=== PATIENT | female | born 1995 ===

== ENCOUNTER 2020-09-24 14:49 | Inpatient (IN) | payer OTHER, BC ==
--- NOTE | 2020-09-24 17:32 | PCM.LDHP ---
L&D History of Present Illness - General Date of Service: 09/24/20 Admit Problem/Dx: Patient Status Order with Admit Dx/Problem 09/24/20 15:50 Patient Status [ADT] Routine Admission Diagnosis/Problem Admission Diagnosis/Problem Source of Information: Patient History Limitations: Reports: No Limitations - History of Present Illness Introduction:: 25yo at 39w4d present with contractions with cervical changes. Cont ractions currently every 4mns. care remarkable for positive chlamydia in 1st trimester, successfully treated, with negative test of cure x2 Otherwise care unremarkable: 0+, abs screen neg, RI, HepBsAg neg, HIV neg, RPR, neg, latest GC/Chlam neg, GBS neg. - Related Data Allergies/Adverse Reactions: Allergies Allergy/AdvReac Type Severity Reaction Status Date / Time No Known Allergies Allergy Verified 09/24/20 06:45 Home Medications: Home Meds Pnv No.95/Ferrous Fum/Folic AC [ Tablet] 1 tab PO DAILY 09/24/20 [History] H&P Review of Systems - Review of Systems: Review Of Systems: See Below General: Reports: No Symptoms HEENT: Reports: No Symptoms Pulmonary: Reports: No Symptoms Cardiovascular: Reports: No Symptoms Gastrointestinal: Reports: No Symptoms Genitourinary: Reports: No Symptoms Musculoskeletal: Reports: No Symptoms Skin: Reports: No Symptoms Psychiatric: Reports: No Symptoms Neurological: Reports: No Symptoms Hematologic/Lymphatic: Reports: No Symptoms Immunologic: Reports: No Symptoms L&D Exam - Exam Exam: See Below - OB Specific Contraction Intensity: Moderate Movement: Active Heart Tones: Present Heart Rate (FHR) Variability: Moderate (6-25 bmp) Presentation: Vertex Estimated Weight: 7 - Rodriguez Score Rodriguez Score Cervix Position: Midposition Rodriguez Score Consistency: Medium Rodriguez Score Effacement: 51-70% Rodriguez Score Dilation: 3-4 cm Rodriguez Score 's Station: -1 ,0 Rodriguez Score Total: 8 - Exam General: Alert, Oriented Lungs: Normal Respiratory Effort Cardiovascular: Regular Rate GI/Abdominal Exam: Soft Extremities: Normal Inspection Psychiatric: Alert, Normal Affect, Normal Mood - Patient Data Lab Results Last 24 hrs: Laboratory Results - last 24 hr 09/24/20 Range/Units 15:55 SARS-CoV-2 RNA ([place]) NEGATIVE (NEGATIVE) Result Diagrams: 09/24/20 18:40 - Problem List (1) Active labor at term SNOMED Code(s): 07995992 ICD Code: [id number] - Status: Acute Current Visit: Yes Problem List Initiated/Reviewed/Updated: Yes Orders Last 24hrs: Active Orders 24 hr Category Date Time Status Patient Status [ADT] Routine ADT 09/24/20 15:50 Active Non Stress Test [RC] PER UNIT ROUTINE Care 09/24/20 15:50 Active Up ad Chary [RC] ASDIRECTED Care 09/24/20 15:50 Active Vaginal Exam [RC] Click to Edit Care 09/24/20 15:50 Active Vital Signs [RC] PER UNIT ROUTINE Care 09/24/20 15:50 Active Resuscitation Status Routine Resus Stat 09/24/20 15:49 Ordered Assessment/Plan Comment:: 25yo at 39w4d present in early labor. Admit to labor and delivery. Expectant management. Plan to augment with Pitocin and/or AROM PRN Epidural PRN
[2020-09-24] MEDS ORDERED: Lidocaine 1% 50 ML MDV INJECT PRN (18:00)
[2020-09-24] MEDS ORDERED: Terbutaline 1 MG/ML SDV SUBCUT PRN (18:00)
[2020-09-24] MEDS ORDERED: Oxytocin/0.9 % Sodium Chloride 30 UNIT/500 ML BAG IV SCH ×2 (18:00)
[2020-09-24] MEDS ORDERED: Water For Irrigation,Sterile 1,000 ML Container IRR PRN (18:00)
[2020-09-24] MEDS ORDERED: Misoprostol 25 MCG (1/4 of 100 MCG) Tab VAG PRN ×2 (18:00)
[2020-09-24] MEDS ORDERED: Carboprost Tromethamine 250 MCG/1 ML Amp IM PRN (18:00)
[2020-09-24] MEDS ORDERED: Methylergonovine 0.2 MG/1 ML Amp IM PRN (18:00)
[2020-09-24] MEDS ORDERED: Misoprostol 200 MCG Tab PO PRN (18:00)
[2020-09-24] MEDS ORDERED: Ondansetron 4 MG/2 ML SDV IVPUSH PRN (18:00)
[2020-09-24] MEDS ORDERED: Sodium Chloride 0.9% 10 ML Syringe FLUSH PRN (18:00)
[2020-09-24] MEDS ORDERED: Tranexamic Acid 1,000 MG in Sodium Chloride 0.9% 100 ML IV PRN (18:00)
[2020-09-24] MEDS ORDERED: Misoprostol 25 MCG (1/4 of 100 MCG) Tab PO ONE (18:08)
[2020-09-24] MEDS: Lactated Ringers 1,000 ML IV SCH ×2 (20:02→23:43)
[2020-09-24] MEDS: Nalbuphine 10 MG/1 ML Vial IVPUSH PRN ×2 (20:16→23:39)
[2020-09-25] MEDS ORDERED: Ropivacaine HCl/PF 100 ML ONE ×3 (01:21→15:57)
[2020-09-25] MEDS ORDERED: fentaNYL 100 MCG/2 ML SDV ONE ×5 (01:21→17:56)
--- NOTE | 2020-09-25 02:11 | PCM.PREANE ---
Preanesthetic Assessment - Anesthesia/Transfusion/Family Hx Anesthesia History: Prior Anesthesia Without Reaction Family History of Anesthesia Reaction: No Transfusion History: No Prior Transfusion(s) Type of Transfusion Reactions: Reports: Unknown - Physical Assessment NPO Status Date: 09/24/20 NPO Status Time: 20:00 Height: 1.57 m Weight: 74.389 kg ASA Class: 2 - Lab Values: Laboratory Last Values WBC 18.08 K/uL (4.0-11.0) H 09/24/20 18:40 RBC 3.80 M/uL (4.30-5.90) L 09/24/20 18:40 Hgb 11.8 g/dL (12.0-16.0) L 09/24/20 18:40 Hct 34.8 % (36.0-46.0) L 09/24/20 18:40 MCV 91.6 fL (80.0-98.0) 09/24/20 18:40 MCH 31.1 pg (27.0-32.0) 09/24/20 18:40 MCHC 33.9 g/dL (31.0-37.0) 09/24/20 18:40 RDW Std Deviation 44.6 fl (28.0-62.0) 09/24/20 18:40 RDW Coeff of Beryl 13 % (11.0-15.0) 09/24/20 18:40 Plt Count 183 K/uL (150-400) 09/24/20 18:40 MPV 12.70 fL (7.40-12.00) H 09/24/20 18:40 Nucleated RBC % 0.0 /100WBC 09/24/20 18:40 Nucleated RBCs # 0 K/uL 09/24/20 18:40 Membrane Rupture POSITIVE 09/24/20 23:31 SARS-CoV-2 RNA ([place]) NEGATIVE (NEGATIVE) 09/24/20 15:55 Blood Type O POSITIVE 09/24/20 18:40 Antibody Screen NEGATIVE 09/24/20 18:40 - Allergies Allergies/Adverse Reactions: Allergies Allergy/AdvReac Type Severity Reaction Status Date / Time No Known Allergies Allergy Verified 09/24/20 06:45 - Acknowledgements Anesthesia Type Planned: Epidural Pt an Appropriate Candidate for the Planned Anesthesia: Yes Alternatives and Risks of Anesthesia Discussed w Pt/Guardian: Yes Pt/Guardian Understands and Agrees with Anesthesia Plan: Yes PreAnesthesia Questionnaire HEENT History: Reports: None Cardiovascular History: Reports: None Respiratory History: Reports: None Gastrointestinal History: Reports: None Genitourinary History: Reports: None SNOW SHOVELER History: Reports: Musculoskeletal History: Reports: None Neurological History: Reports: None Psychiatric History: Reports: None Endocrine/Metabolic History: Reports: None Hematologic History: Reports: None Immunologic History: Reports: None Oncologic (Cancer) History: Reports: None Dermatologic History: Reports: None - Infectious Disease History Infectious Disease History: Reports: Chicken Pox - Past Surgical History Head Surgeries/Procedures: Reports: None HEENT Surgical History: Reports: None Cardiovascular Surgical History: Reports: None Respiratory Surgical History: Reports: None GI Surgical History: Reports: None Female Surgical History: Reports: None Endocrine Surgical History: Reports: None Musculoskeletal Surgical History: Reports: None Oncologic Surgical History: Reports: None Dermatological Surgical History: Reports: None - SUBSTANCE USE Tobacco Use Status *Q: Never Tobacco User Second Hand Smoke Exposure: No Recreational Drug Use History: No - HOME MEDS Home Medications: Home Meds Pnv No.95/Ferrous Fum/Folic AC [ Tablet] 1 tab PO DAILY 09/24/20 [History] - CURRENT (IN HOUSE) MEDS Current Meds: Current Medications Carboprost Tromethamine (Carboprost Tromethamine 250 Mcg/1 Ml Amp) 250 mcg IM ASDIRECTED PRN PRN Reason: Post Hemorrhage Lactated Ringer's (Ringers, Lactated) 1,000 mls @ 150 mls/hr IV ASDIRECTED JONATHAN Last Infusion: 09/25/20 00:52 Dose: 999 mls/hr Documented by: Oxytocin/Sodium Chloride (Oxytocin 30 Unit/500 Ml-Ns) 30 unit in 500 mls @ 999 mls/hr IV TITRATE JONATHAN Tranexamic Acid 1,000 mg/ (Sodium Chloride) 110 mls @ 660 mls/hr IV ONETIME PRN PRN Reason: Bleeding Oxytocin/Sodium Chloride (Oxytocin 30 Unit/500 Ml-Ns) 30 unit in 500 mls @ 2 mls/hr IV TITRATE JONATHAN; Protocol Last Admin: 09/25/20 02:00 Dose: 2 munits/min, 2 mls/hr Documented by: Lidocaine HCl (Lidocaine 1% 50 Ml Mdv) 50 ml INJECT ONETIME PRN PRN Reason: Laceration repair Methylergonovine Maleate (Methylergonovine 0.2 Mg/1 Ml Amp) 0.2 mg IM ASDIRECTED PRN PRN Reason: Post Hemorrhage Misoprostol (Misoprostol 200 Mcg Tab) 200 mcg PO ONETIME PRN PRN Reason: Post Hemorrhage Misoprostol (Misoprostol 25 Mcg (1/4 Of 100 Mcg) Tab) 25 mcg VAG ONETIME PRN PRN Reason: Cervical Ripening Misoprostol (Misoprostol 25 Mcg (1/4 Of 100 Mcg) Tab) 25 mcg VAG Q4H PRN PRN Reason: Cervical Ripening Ondansetron HCl (Ondansetron 4 Mg/2 Ml Sdv) 4 mg IVPUSH Q4H PRN PRN Reason: Nausea/Vomiting Sodium Chloride (Sodium Chloride 0.9% 10 Ml Syringe) 10 ml FLUSH ASDIRECTED PRN PRN Reason: Keep Vein Open Sterile Water (Water For Irrigation,Sterile 1,000 Ml Container) 1,000 ml IRR ASDIRECTED PRN PRN Reason: delivery Terbutaline Sulfate (Terbutaline 1 Mg/Ml Sdv) 0.25 mg SUBCUT ASDIRECTED PRN PRN Reason: Tacysystole Discontinued Medications Fentanyl (Fentanyl 100 Mcg/2 Ml Sdv) Confirm Administered Dose 100 mcg .ROUTE .STK-MED ONE Stop: 09/25/20 01:22 Ropivacaine (Naropin 0.2%) Confirm Administered Dose 100 mls @ as directed .ROUTE .STK-MED ONE Stop: 09/25/20 01:22 Misoprostol (Misoprostol 25 Mcg (1/4 Of 100 Mcg) Tab) 25 mcg PO ONETIME ONE Stop: 09/24/20 18:09 Nalbuphine HCl (Nalbuphine 10 Mg/1 Ml Vial) 10 mg IVPUSH Q1H PRN PRN Reason: Pain (severe 7-10) Last Admin: 09/24/20 23:39 Dose: 10 mg Documented by:
--- NOTE | 2020-09-25 02:15 | PCM.PRNOTE ---
- Free Text/Narrative Note: Anes Note Patient requests epidural for L&D. Sitting position> Level L3-L4 midline approach. Sterile technqiue. Chloraprep scrub to lumbar area. Sterile fenestrated drape applied. Epidural space easily achieved singel attempt using MILA technique. MILA at 3 cm. Cath threaded 5 cm with ease. Cath secured usng sterile clear adhesive dressing. Test 0125 3 cc 1.5% lido with epi negative. 0128 Load 10 cc 0.2% ropiviciane iwht 1 mcg cc fentanyl in slow divided doses. 0133 Pump started with 90 cc same solution. Rate is 8 cc hr with 6 cc q 20 min prn bolus. Sun well. Time with patient [id number] Thom Coburn MAINTENANCE AND UTILITIES SUPERVISOR
[2020-09-25] MEDS: Lactated Ringers 1,000 ML IV SCH (05:44)
[2020-09-25] MEDS: Ampicillin 2 GM in Sodium Chloride 0.9% 100 ML IV SCH ×2 (08:57→14:49)
--- NOTE | 2020-09-25 09:17 | PCM.PNLD ---
Labor Progress Note - VS & Meds Active Medications: Current Medications Carboprost Tromethamine (Carboprost Tromethamine 250 Mcg/1 Ml Amp) 250 mcg IM ASDIRECTED PRN PRN Reason: Post Hemorrhage Lactated Ringer's (Ringers, Lactated) 1,000 mls @ 150 mls/hr IV ASDIRECTED [facility] Last Admin: 09/25/20 05:44 Dose: 150 mls/hr Documented by: Oxytocin/Sodium Chloride (Oxytocin 30 Unit/500 Ml-Ns) 30 unit in 500 mls @ 999 mls/hr IV TITRATE JONATHAN Tranexamic Acid 1,000 mg/ (Sodium Chloride) 110 mls @ 660 mls/hr IV ONETIME PRN PRN Reason: Bleeding Oxytocin/Sodium Chloride (Oxytocin 30 Unit/500 Ml-Ns) 30 unit in 500 mls @ 2 mls/hr IV TITRATE [facility]; Protocol Last Titration: 09/25/20 05:40 Dose: 10 munits/min, 10 mls/hr Documented by: Ampicillin Sodium 2 gm/ Sodium (Chloride) 100 mls @ 200 mls/hr IV Q6H [facility] Last Admin: 09/25/20 08:57 Dose: 200 mls/hr Documented by: Gentamicin Sulfate 100 mg/ (Sodium Chloride) 102.5 mls @ 195.238 mls/hr IV Q8H JONATHAN Gentamicin Sulfate 140 mg/ (Sodium Chloride) 103.5 mls @ 207 mls/hr IV ONETIME ONE Stop: 09/25/20 09:29 Lidocaine HCl (Lidocaine 1% 50 Ml Mdv) 50 ml INJECT ONETIME PRN PRN Reason: Laceration repair Methylergonovine Maleate (Methylergonovine 0.2 Mg/1 Ml Amp) 0.2 mg IM ASDIRECTED PRN PRN Reason: Post Hemorrhage Misoprostol (Misoprostol 200 Mcg Tab) 200 mcg PO ONETIME PRN PRN Reason: Post Hemorrhage Misoprostol (Misoprostol 25 Mcg (1/4 Of 100 Mcg) Tab) 25 mcg VAG ONETIME PRN PRN Reason: Cervical Ripening Misoprostol (Misoprostol 25 Mcg (1/4 Of 100 Mcg) Tab) 25 mcg VAG Q4H PRN PRN Reason: Cervical Ripening Ondansetron HCl (Ondansetron 4 Mg/2 Ml Sdv) 4 mg IVPUSH Q4H PRN PRN Reason: Nausea/Vomiting Sodium Chloride (Sodium Chloride 0.9% 10 Ml Syringe) 10 ml FLUSH ASDIRECTED PRN PRN Reason: Keep Vein Open Sterile Water (Water For Irrigation,Sterile 1,000 Ml Container) 1,000 ml IRR ASDIRECTED PRN PRN Reason: delivery Terbutaline Sulfate (Terbutaline 1 Mg/Ml Sdv) 0.25 mg SUBCUT ASDIRECTED PRN PRN Reason: Tacysystole Discontinued Medications Fentanyl (Fentanyl 100 Mcg/2 Ml Sdv) Confirm Administered Dose 100 mcg .ROUTE .STK-MED ONE Stop: 09/25/20 01:22 Last Admin: 09/25/20 08:47 Dose: Not Given Documented by: Ropivacaine (Naropin 0.2%) Confirm Administered Dose 100 mls @ as directed .ROUTE .STK-MED ONE Stop: 09/25/20 01:22 Last Admin: 09/25/20 08:47 Dose: Not Given Documented by: Gentamicin Sulfate 140 mg/ (Sodium Chloride) 53.5 mls @ 100 mls/hr IV ONETIME ONE Stop: 09/25/20 09:32 Misoprostol (Misoprostol 25 Mcg (1/4 Of 100 Mcg) Tab) 25 mcg PO ONETIME ONE Stop: 09/24/20 18:09 Nalbuphine HCl (Nalbuphine 10 Mg/1 Ml Vial) 10 mg IVPUSH Q1H PRN PRN Reason: Pain (severe 7-10) Last Admin: 09/24/20 23:39 Dose: 10 mg Documented by: - Uterine Contractions Uterine Monitoring Mode: External [place] Contraction Intensity: Moderate to Strong Uterine Resting Tone: Soft - Monitoring Monitor Mode: Doppler/Auscultation Heart Rate (FHR) Variability: Moderate (6-25 bmp) Accelerations: Present, 15x15 Decelerations: Variable Strip Review: Category II - Vaginal Exam Dilation (cm): 4 Station: -1 Cervical Position: Midposition - Labor Progress (Free Text) Labor Progress: Patient reported fluid leaking and amnisure was positive at 11pm (09/24/20). Nurse reports fluid was minimal, appeared meconium tinged and mixed with bloody show. Fetus has now been having intermittent tachycardia for ~2hrs, as high as 165. Good accels with minimal to moderate variability. Mom just spiked a low grade fever (100.5) and reports burning of the eyes, but no abdominal tenderness. Of note, she has the epidural in place. Provider discussed concerns for chorioamnionitis and necessity to treat. Patient agreeable to the plan. Will start ampicillin Q6hrs and gentamicin Q8hrs
--- NOTE | 2020-09-25 09:33 | PCM.PRNOTE ---
- Free Text/Narrative Note: Anes Note Epiudral infusion is complete. A new bag of 90 cc 0.2% ropivicaine with 1 mcg cc fentanyl added was placed. Rate is 8 cc hr with 6 cc q 20 min prn bolus. Time with patient [id number] Thom Coburn CRNA
[2020-09-25] MEDS ORDERED: Acetaminophen 500 MG Tab PO ONE (10:50)
[2020-09-25] MEDS ORDERED: Acetaminophen 500 MG Tab ONE (10:50)
[2020-09-25] MEDS ORDERED: Bupivacaine 0.5% 30 ML SDV ONE (15:50)
--- NOTE | 2020-09-25 16:10 | PCM.PRNOTE ---
- Free Text/Narrative Note: Anes Note Patietn reports mild to moderate discomfort in left mid to upper abdomen. Lower abdomen (below T10 Level) and perineum are comfortable. I nelson ed the epidural with 100 mcg fentanyl plus 4 cc 0.5% bupivicaine in slow divided doses. A new bag was placed. 95 cc of 0.2% ropivicaine with 1 mcg cc fentanyl. Rate is 8 cc hr with 6 cc q 20 min prn bolus. Sun well. Time with patient [id number] Thom Coburn CRNA
[2020-09-25] MEDS ORDERED: Citric Acid/Sodium Citrate Solution 30 ML Cup PO ONE (17:31)
[2020-09-25] MEDS ORDERED: metroNIDAZOLE/Normal Saline 500 MG in Premix Bag 1 BAG IV ONE (17:36)
[2020-09-25] MEDS ORDERED: Lactated Ringers 1,000 ML IV SCH ×2 (17:45→19:30)
[2020-09-25] MEDS ORDERED: Oxytocin/0.9 % Sodium Chloride 30 UNIT/500 ML BAG IV SCH (17:45)
--- NOTE | 2020-09-25 17:53 | PCM.PNLD ---
Labor Progress Note - VS & Meds Vital Signs: Last Vital Signs Temp 99.7 F 09/25/20 11:21 Pulse Resp BP Pulse Ox Active Medications: Current Medications Carboprost Tromethamine (Carboprost Tromethamine 250 Mcg/1 Ml Amp) 250 mcg IM ASDIRECTED PRN PRN Reason: Post Hemorrhage Lactated Ringer's (Ringers, Lactated) 1,000 mls @ 150 mls/hr IV ASDIRECTED [facility] Last Admin: 09/25/20 05:44 Dose: 150 mls/hr Documented by: Oxytocin/Sodium Chloride (Oxytocin 30 Unit/500 Ml-Ns) 30 unit in 500 mls @ 999 mls/hr IV TITRATE JONATHAN Tranexamic Acid 1,000 mg/ (Sodium Chloride) 110 mls @ 660 mls/hr IV ONETIME PRN PRN Reason: Bleeding Oxytocin/Sodium Chloride (Oxytocin 30 Unit/500 Ml-Ns) 30 unit in 500 mls @ 2 mls/hr IV TITRATE [facility]; Protocol Last Titration: 09/25/20 12:18 Dose: 14 munits/min, 14 mls/hr Documented by: Ampicillin Sodium 2 gm/ Sodium (Chloride) 100 mls @ 200 mls/hr IV Q6H [facility] Last Admin: 09/25/20 14:49 Dose: 200 mls/hr Documented by: Gentamicin Sulfate 100 mg/ (Sodium Chloride) 102.5 mls @ 195.238 mls/hr IV Q8H [facility] Last Admin: 09/25/20 17:06 Dose: 195.238 mls/hr Documented by: Lactated Ringer's (Ringers, Lactated) 1,000 mls @ 500 mls/hr IV BOLUS JONATHAN Oxytocin/Sodium Chloride (Oxytocin 30 Unit/500 Ml-Ns) 30 unit in 500 mls @ 250 mls/hr IV TITRATE JONATHAN Metronidazole 500 mg/ Premix 100 mls @ 100 mls/hr IV ONETIME ONE Stop: 09/25/20 18:35 Lidocaine HCl (Lidocaine 1% 50 Ml Mdv) 50 ml INJECT ONETIME PRN PRN Reason: Laceration repair Methylergonovine Maleate (Methylergonovine 0.2 Mg/1 Ml Amp) 0.2 mg IM ASDIRECTED PRN PRN Reason: Post Hemorrhage Misoprostol (Misoprostol 200 Mcg Tab) 200 mcg PO ONETIME PRN PRN Reason: Post Hemorrhage Misoprostol (Misoprostol 25 Mcg (1/4 Of 100 Mcg) Tab) 25 mcg VAG ONETIME PRN PRN Reason: Cervical Ripening Misoprostol (Misoprostol 25 Mcg (1/4 Of 100 Mcg) Tab) 25 mcg VAG Q4H PRN PRN Reason: Cervical Ripening Ondansetron HCl (Ondansetron 4 Mg/2 Ml Sdv) 4 mg IVPUSH Q4H PRN PRN Reason: Nausea/Vomiting Sodium Chloride (Sodium Chloride 0.9% 10 Ml Syringe) 10 ml FLUSH ASDIRECTED PRN PRN Reason: Keep Vein Open Sterile Water (Water For Irrigation,Sterile 1,000 Ml Container) 1,000 ml IRR ASDIRECTED PRN PRN Reason: delivery Terbutaline Sulfate (Terbutaline 1 Mg/Ml Sdv) 0.25 mg SUBCUT ASDIRECTED PRN PRN Reason: Tacysystole Discontinued Medications Acetaminophen (Acetaminophen 500 Mg Tab) 1,000 mg PO ONETIME ONE Stop: 09/25/20 10:51 Last Admin: 09/25/20 10:51 Dose: 1,000 mg Documented by: Acetaminophen (Acetaminophen 500 Mg Tab) Confirm Administered Dose 1,000 mg .ROUTE .STK-MED ONE Stop: 09/25/20 10:51 Last Admin: 09/25/20 10:53 Dose: Not Given Documented by: Bupivacaine HCl (Bupivacaine 0.5% 30 Ml Sdv) Confirm Administered Dose 30 ml .ROUTE .STK-MED ONE Stop: 09/25/20 15:51 Citric Acid/Sodium Citrate (Citric Acid/Sodium Citrate Solution 30 Ml Cup) 30 ml PO ONETIME ONE Stop: 09/25/20 17:32 Fentanyl (Fentanyl 100 Mcg/2 Ml Sdv) Confirm Administered Dose 100 mcg .ROUTE .STK-MED ONE Stop: 09/25/20 01:22 Last Admin: 09/25/20 08:47 Dose: Not Given Documented by: Fentanyl (Fentanyl 100 Mcg/2 Ml Sdv) Confirm Administered Dose 100 mcg .ROUTE .STK-MED ONE Stop: 09/25/20 09:25 Last Admin: 09/25/20 11:42 Dose: Not Given Documented by: Fentanyl (Fentanyl 100 Mcg/2 Ml Sdv) Confirm Administered Dose 100 mcg .ROUTE .STK-MED ONE Stop: 09/25/20 15:51 Fentanyl (Fentanyl 100 Mcg/2 Ml Sdv) Confirm Administered Dose 100 mcg .ROUTE .STK-MED ONE Stop: 09/25/20 15:58 Ropivacaine (Naropin 0.2%) Confirm Administered Dose 100 mls @ as directed .ROUTE .STK-MED ONE Stop: 09/25/20 01:22 Last Admin: 09/25/20 08:47 Dose: Not Given Documented by: Gentamicin Sulfate 140 mg/ (Sodium Chloride) 53.5 mls @ 100 mls/hr IV ONETIME ONE Stop: 09/25/20 09:32 Gentamicin Sulfate 140 mg/ (Sodium Chloride) 103.5 mls @ 207 mls/hr IV ONETIME ONE Stop: 09/25/20 09:29 Last Admin: 09/25/20 09:30 Dose: 206 mls/hr Documented by: Ropivacaine (Naropin 0.2%) Confirm Administered Dose 100 mls @ as directed .ROUTE .STK-MED ONE Stop: 09/25/20 09:25 Last Admin: 09/25/20 11:41 Dose: Not Given Documented by: Ropivacaine (Naropin 0.2%) Confirm Administered Dose 100 mls @ as directed .ROUTE .STK-MED ONE Stop: 09/25/20 15:58 Misoprostol (Misoprostol 25 Mcg (1/4 Of 100 Mcg) Tab) 25 mcg PO ONETIME ONE Stop: 09/24/20 18:09 Nalbuphine HCl (Nalbuphine 10 Mg/1 Ml Vial) 10 mg IVPUSH Q1H PRN PRN Reason: Pain (severe 7-10) Last Admin: 09/24/20 23:39 Dose: 10 mg Documented by: - Uterine Contractions Uterine Monitoring Mode: External [place] Contraction Intensity: Moderate to Strong Uterine Resting Tone: Soft - Monitoring Monitor Mode: Doppler/Auscultation Heart Rate (FHR) Baseline: 175 Heart Rate (FHR) Variability: Moderate (6-25 bmp) Accelerations: Present, 15x15 Decelerations: Variable Strip Review: Category II - Vaginal Exam Dilation (cm): 8 Station: -2 Cervical Position: Midposition - Labor Progress (Free Text) Labor Progress: tachycardia for the past ~10hrs with intermittent normal episodes of normal HR. Moderate variability, and +accels --> cat II FHT Patient has been 8cm dilated for ~3hrs. Significant pelvic and genital edema, and caput. Mother spiked another fever and having chills. Provider discussed risks and benefits of continuing with trial of vaginal vs proceeding with a primary . Patient and family at bedside agreeable for . OR team has been called
[2020-09-25] MEDS ORDERED: Morphine PF 10 MG/10 ML SDV ONE (17:56)
[2020-09-25] MEDS ORDERED: Octyl 2-Cyanoacrylate 1 Tube ONE (18:03)
--- NOTE | 2020-09-25 18:03 | PCM.DEL ---
L & D Note - General Info Date of Service: 09/25/20 Mother's Due Date: 09/27/20 - Delivery Note Labor: Spontaneous Delivery Outcome: Livebirth Infant Delivery Method: Primary Presentation: Vertex Nuchal Cord: None Anesthesia Type: Combined Spinal Epidural Amniotic Fluid Description: Meconium Stained Placenta: Intact, Spontaneous, Meconium Stained Cord: 3 Vessels Estimated Blood Loss: 600 Resuscitation Needed: No : Stimulated Score 1 min: 9 Score 5 min: 9 Delivery Comments (Free Text/Narrative):: 25yo G1 now P1 S/P uncomplicated PLTCS @ 39w5d GA. course was unremarkable. Labor course c/b chorioamnionitis, persistent tachycardia and failure to progress. PLTCS of a live male, 7lb 3oz and Apgars 9/9. No nuchal cord, heavily meconium- tinged fluid. EBL 600cc. Hemostasis. Patient tolerated procedure well, recovering in LDR. Infant by her side. - General Info Date of Service: 09/25/20 Admission Dx/Problem (Free Text): Patient Status Order with Admit Dx/Problem 09/24/20 15:50 Patient Status [ADT] Routine Admission Diagnosis/Problem Admission Diagnosis/Problem Subjective Update: Uncomplicated PLTCS at 39w5d GA secondary to failure to progress in the setting of Chorioamnionitis with subsequent persistent tachycardia. Mother and baby are doing well Functional Status: Reports: Pain Controlled - Review of Systems General: Reports: No Symptoms HEENT: Reports: No Symptoms Pulmonary: Reports: No Symptoms Cardiovascular: Reports: No Symptoms Gastrointestinal: Reports: No Symptoms Genitourinary: Reports: No Symptoms Musculoskeletal: Reports: No Symptoms Skin: Reports: No Symptoms Neurological: Reports: No Symptoms Psychiatric: Reports: No Symptoms - Patient Data Vitals - Most Recent: Last Vital Signs Temp 99.7 F 09/25/20 11:21 Pulse Resp BP Pulse Ox Weight - Most Recent: 74.389 kg Lab Results Last 24 Hours: Laboratory Results - last 24 hr 09/24/20 09/24/20 09/24/20 Range/Units 18:40 18:40 19:50 WBC 18.08 H (4.0-11.0) K/uL RBC 3.80 L (4.30-5.90) M/uL Hgb 11.8 L (12.0-16.0) g/dL Hct 34.8 L (36.0-46.0) % MCV 91.6 (80.0-98.0) fL MCH 31.1 (27.0-32.0) pg MCHC 33.9 (31.0-37.0) g/dL RDW Std Deviation 44.6 (28.0-62.0) fl RDW Coeff of Beryl 13 (11.0-15.0) % Plt Count 183 (150-400) K/uL MPV 12.70 H (7.40-12.00) fL Nucleated RBC % 0.0 /100WBC Nucleated RBCs # 0 K/uL Membrane Rupture NEGATIVE Blood Type O POSITIVE Antibody Screen NEGATIVE 09/24/20 Range/Units 23:31 WBC (4.0-11.0) K/uL RBC (4.30-5.90) M/uL Hgb (12.0-16.0) g/dL Hct (36.0-46.0) % MCV (80.0-98.0) fL MCH (27.0-32.0) pg MCHC (31.0-37.0) g/dL RDW Std Deviation (28.0-62.0) fl RDW Coeff of Beryl (11.0-15.0) % Plt Count (150-400) K/uL MPV (7.40-12.00) fL Nucleated RBC % /100WBC Nucleated RBCs # K/uL Membrane Rupture POSITIVE Blood Type Antibody Screen Med Orders - Current: Current Medications Carboprost Tromethamine (Carboprost Tromethamine 250 Mcg/1 Ml Amp) 250 mcg IM ASDIRECTED PRN PRN Reason: Post Hemorrhage Lactated Ringer's (Ringers, Lactated) 1,000 mls @ 150 mls/hr IV ASDIRECTED JONATHAN Last Admin: 09/25/20 05:44 Dose: 150 mls/hr Documented by: Oxytocin/Sodium Chloride (Oxytocin 30 Unit/500 Ml-Ns) 30 unit in 500 mls @ 999 mls/hr IV TITRATE JONATHAN Tranexamic Acid 1,000 mg/ (Sodium Chloride) 110 mls @ 660 mls/hr IV ONETIME PRN PRN Reason: Bleeding Oxytocin/Sodium Chloride (Oxytocin 30 Unit/500 Ml-Ns) 30 unit in 500 mls @ 2 mls/hr IV TITRATE [facility]; Protocol Last Titration: 09/25/20 12:18 Dose: 14 munits/min, 14 mls/hr Documented by: Ampicillin Sodium 2 gm/ Sodium (Chloride) 100 mls @ 200 mls/hr IV Q6H [facility] Last Admin: 09/25/20 14:49 Dose: 200 mls/hr Documented by: Gentamicin Sulfate 100 mg/ (Sodium Chloride) 102.5 mls @ 195.238 mls/hr IV Q8H [facility] Last Admin: 09/25/20 17:06 Dose: 195.238 mls/hr Documented by: Lactated Ringer's (Ringers, Lactated) 1,000 mls @ 500 mls/hr IV BOLUS [facility] Oxytocin/Sodium Chloride (Oxytocin 30 Unit/500 Ml-Ns) 30 unit in 500 mls @ 250 mls/hr IV TITRATE [facility] Metronidazole 500 mg/ Premix 100 mls @ 100 mls/hr IV ONETIME ONE Stop: 09/25/20 18:35 Lidocaine HCl (Lidocaine 1% 50 Ml Mdv) 50 ml INJECT ONETIME PRN PRN Reason: Laceration repair Methylergonovine Maleate (Methylergonovine 0.2 Mg/1 Ml Amp) 0.2 mg IM ASDIRECTED PRN PRN Reason: Post Hemorrhage Misoprostol (Misoprostol 200 Mcg Tab) 200 mcg PO ONETIME PRN PRN Reason: Post Hemorrhage Misoprostol (Misoprostol 25 Mcg (1/4 Of 100 Mcg) Tab) 25 mcg VAG ONETIME PRN PRN Reason: Cervical Ripening Misoprostol (Misoprostol 25 Mcg (1/4 Of 100 Mcg) Tab) 25 mcg VAG Q4H PRN PRN Reason: Cervical Ripening Ondansetron HCl (Ondansetron 4 Mg/2 Ml Sdv) 4 mg IVPUSH Q4H PRN PRN Reason: Nausea/Vomiting Sodium Chloride (Sodium Chloride 0.9% 10 Ml Syringe) 10 ml FLUSH ASDIRECTED PRN PRN Reason: Keep Vein Open Sterile Water (Water For Irrigation,Sterile 1,000 Ml Container) 1,000 ml IRR ASDIRECTED PRN PRN Reason: delivery Terbutaline Sulfate (Terbutaline 1 Mg/Ml Sdv) 0.25 mg SUBCUT ASDIRECTED PRN PRN Reason: Tacysystole Discontinued Medications Acetaminophen (Acetaminophen 500 Mg Tab) 1,000 mg PO ONETIME ONE Stop: 09/25/20 10:51 Last Admin: 09/25/20 10:51 Dose: 1,000 mg Documented by: Acetaminophen (Acetaminophen 500 Mg Tab) Confirm Administered Dose 1,000 mg .ROUTE .STK-MED ONE Stop: 09/25/20 10:51 Last Admin: 09/25/20 10:53 Dose: Not Given Documented by: Bupivacaine HCl (Bupivacaine 0.5% 30 Ml Sdv) Confirm Administered Dose 30 ml .ROUTE .STK-MED ONE Stop: 09/25/20 15:51 Citric Acid/Sodium Citrate (Citric Acid/Sodium Citrate Solution 30 Ml Cup) 30 ml PO ONETIME ONE Stop: 09/25/20 17:32 Fentanyl (Fentanyl 100 Mcg/2 Ml Sdv) Confirm Administered Dose 100 mcg .ROUTE .STK-MED ONE Stop: 09/25/20 01:22 Last Admin: 09/25/20 08:47 Dose: Not Given Documented by: Fentanyl (Fentanyl 100 Mcg/2 Ml Sdv) Confirm Administered Dose 100 mcg .ROUTE .STK-MED ONE Stop: 09/25/20 09:25 Last Admin: 09/25/20 11:42 Dose: Not Given Documented by: Fentanyl (Fentanyl 100 Mcg/2 Ml Sdv) Confirm Administered Dose 100 mcg .ROUTE .STK-MED ONE Stop: 09/25/20 15:51 Fentanyl (Fentanyl 100 Mcg/2 Ml Sdv) Confirm Administered Dose 100 mcg .ROUTE .STK-MED ONE Stop: 09/25/20 15:58 Ropivacaine (Naropin 0.2%) Confirm Administered Dose 100 mls @ as directed .R OUTE .STK-MED ONE Stop: 09/25/20 01:22 Last Admin: 09/25/20 08:47 Dose: Not Given Documented by: Gentamicin Sulfate 140 mg/ (Sodium Chloride) 53.5 mls @ 100 mls/hr IV ONETIME ONE Stop: 09/25/20 09:32 Gentamicin Sulfate 140 mg/ (Sodium Chloride) 103.5 mls @ 207 mls/hr IV ONETIME ONE Stop: 09/25/20 09:29 Last Admin: 09/25/20 09:30 Dose: 206 mls/hr Documented by: Ropivacaine (Naropin 0.2%) Confirm Administered Dose 100 mls @ as directed .ROUTE .STK-MED ONE Stop: 09/25/20 09:25 Last Admin: 09/25/20 11:41 Dose: Not Given Documented by: Ropivacaine (Naropin 0.2%) Confirm Administered Dose 100 mls @ as directed .ROUTE .STK-MED ONE Stop: 09/25/20 15:58 Misoprostol (Misoprostol 25 Mcg (1/4 Of 100 Mcg) Tab) 25 mcg PO ONETIME ONE Stop: 09/24/20 18:09 Nalbuphine HCl (Nalbuphine 10 Mg/1 Ml Vial) 10 mg IVPUSH Q1H PRN PRN Reason: Pain (severe 7-10) Last Admin: 09/24/20 23:39 Dose: 10 mg Documented by: - Exam General: Alert, Oriented Lungs: Normal Respiratory Effort Cardiovascular: Regular Rate, Regular Rhythm GI/Abdominal Exam: Soft Extremities: Normal Inspection Psy/Mental Status: Alert, Normal Affect, Normal Mood - Problem List & Annotations (1) Active labor at term SNOMED Code(s): 69769413 Code(s): LQX6924 - Status: Acute Current Visit: Yes (2) Status post primary low transverse section SNOMED Code(s): 348679470, 60637817, 502066769, 152968929, 136238019 Code(s): Z98.891 - HISTORY OF UTERINE SCAR FROM PREVIOUS SURGERY Status: Acute Current Visit: Yes - Problem List Review Problem List Initiated/Reviewed/Updated: Yes - My Orders Last 24 Hours: My Active Orders 09/24/20 18:00 Carboprost Tromethamine [Hemabate DS] 250 mcg IM ASDIRECTED PRN Lactated Ringers [Ringers, Lactated] 1,000 ml IV ASDIRECTED Lidocaine 1% [Xylocaine 1%] 50 ml INJECT ONETIME PRN Methylergonovine [Methergine] 0.2 mg IM ASDIRECTED PRN Ondansetron [Zofran] 4 mg IVPUSH Q4H PRN Oxytocin/0.9 % Sodium Chloride [Oxytocin 30 Unit/500 ML-NS] 30 unit in 500 ml IV TITRATE Oxytocin/0.9 % Sodium Chloride [Oxytocin 30 Unit/500 ML-NS] 30 unit in 500 ml IV TITRATE Sodium Chloride 0.9% [Saline Flush] 10 ml FLUSH ASDIRECTED PRN Terbutaline [Brethine] 0.25 mg SUBCUT ASDIRECTED PRN Tranexamic Acid [Cyklokapron] 1,000 mg Sodium Chloride 0.9% [Normal Saline] 1 00 ml IV ONETIME Water For Irrigation,Sterile [Sterile Water for Irrigation] 1,000 ml IRR ASDIRECTED PRN miSOPROStoL [Cytotec] 200 mcg PO ONETIME PRN miSOPROStoL [Cytotec] 25 mcg VAG ONETIME PRN miSOPROStoL [Cytotec] 25 mcg VAG Q4H PRN 09/24/20 18:01 Bedrest Bathroom Privileges [RC] ASDIRECTED May Shower [RC] ASDIRECTED Notify Provider [RC] PRN Notify Provider [RC] PRN Notify Provider [RC] STAT Scalp Electrode [WOMSER] Per Unit Routine Peripheral IV Insertion Adult [OM.PC] Routine 09/24/20 18:15 Medication Administration Instruction [OM.PC] Q3H 09/24/20 18:40 RPR (SYPHILIS SERO) W/ RFLX [REF] Routine 09/25/20 08:45 Ampicillin 2 gm Sodium Chloride 0.9% [Normal Saline] 100 ml IV Q6H 09/25/20 17:00 Gentamicin 100 mg Sodium Chloride 0.9% [Normal Saline] 100 ml IV Q8H 09/25/20 17:31 Patient Status [ADT] Routine Verify Patient Consent Obtain [RC] ASDIRECTED Schedule Procedure [COMM] Per Unit Routine 09/25/20 17:36 metroNIDAZOLE/Normal Saline [Flagyl in NS 500 MG/100 ML] 500 mg Premix Bag 1 bag IV ONETIME 09/25/20 17:45 Lactated Ringers [Ringers, Lactated] 1,000 ml IV BOLUS Oxytocin/0.9 % Sodium Chloride [Oxytocin 30 Unit/500 ML-NS] 30 unit in 500 ml IV TITRATE 09/25/20 19:00 Notify Provider Vital Signs [RC] PRN - Plan Plan:: 25yo G1 now P1 s/p uncomplicated PLTCS at 39w5d secondary to failure to progress in the setting of chorioamnionitis. Patient treated for chorio with amp and gent. Baby has recovered well. Admit to L&D Routine PP care.
[2020-09-25] MEDS ORDERED: Oxytocin 10 Units/1 ML SDV ONE (18:08)
[2020-09-25] MEDS ORDERED: Phenylephrine 1% 10 MG/ML SDV ONE (18:08)
[2020-09-25] MEDS ORDERED: ceFAZolin 1 GM Vial ONE (18:08)
[2020-09-25] MEDS ORDERED: Sodium Chloride 0.9% 20 ML ONE (18:08)
[2020-09-25] MEDS ORDERED: Ketorolac 30 MG/ML SDV ONE (18:08)
[2020-09-25] MEDS ORDERED: Ondansetron 4 MG/2 ML SDV ONE (18:08)
[2020-09-25] MEDS ORDERED: Propofol 200 MG/20 ML SDV ONE (18:17)
[2020-09-25] MEDS ORDERED: Ketamine 500 mg/10 ML MDV ONE (18:22)
[2020-09-25] MEDS ORDERED: Nalbuphine 10 MG/1 ML Vial IVPUSH PRN (18:38)
[2020-09-25] MEDS ORDERED: Ibuprofen 800 MG Tab PO PRN (19:22)
[2020-09-25] MEDS ORDERED: Misoprostol 200 MCG Tab RECTAL PRN (19:22)
[2020-09-25] MEDS ORDERED: Lanolin 100% Cream 7 GM Tube TOP PRN (19:22)
[2020-09-25] MEDS ORDERED: Tranexamic Acid 1,000 MG in Sodium Chloride 0.9% 100 ML IV PRN (19:22)
[2020-09-25] MEDS ORDERED: Bisacodyl 10 MG Supp RECTAL PRN (19:22)
[2020-09-25] MEDS ORDERED: Acetaminophen/oxyCODONE 325-5 MG Tab PO PRN (19:22)
[2020-09-25] MEDS ORDERED: diphenhydrAMINE 50 MG/ML SDV IVPUSH PRN (19:22)
[2020-09-25] MEDS ORDERED: Oxytocin 10 Units/1 ML SDV IM PRN (19:22)
[2020-09-25] MEDS ORDERED: Ondansetron 4 MG/2 ML SDV IVPUSH PRN (19:22)
[2020-09-25] MEDS ORDERED: Methylergonovine 0.2 MG/1 ML Amp IM PRN (19:22)
[2020-09-25] MEDS ORDERED: Oxytocin/Lactated Ringers 30 UNIT/500 ML BAG IV SCH (19:30)
[2020-09-25] MEDS ORDERED: Ketorolac 30 MG/ML SDV IVPUSH SCH (19:30)
[2020-09-25] MEDS ORDERED: Acetaminophen 500 MG Tab PO PRN (19:39)
--- NOTE | 2020-09-25 19:41 | PCM.POSTAN ---
POST ANESTHESIA ASSESSMENT - MENTAL STATUS Mental Status: Alert - VITAL SIGNS Vital Signs: Last Vital Signs Temp 37.6 C 09/25/20 11:21 Pulse Resp BP Pulse Ox - RESPIRATORY Respiratory Status: Respiratory Rate WNL - CARDIOVASCULAR CV Status: Pulse Rate WNL - GASTROINTESTINAL GI Status: No Symptoms - POST OP HYDRATION Hydration Status: Adequate & Stable
[2020-09-26] MEDS: Ketorolac 30 MG/ML SDV IVPUSH SCH ×4 (00:44→18:07)
--- NOTE | 2020-09-26 07:02 | PCM48HPAN ---
Post Anesthesia Note - EVALUATION WITHIN 48HRS OF ANESTHETIC Vital Signs in Normal Range: Yes Patient Participated in Evaluation: Yes Respiratory Function Stable: Yes Airway Patent: Yes Cardiovascular Function Stable: Yes Hydration Status Stable: Yes Pain Control Satisfactory: Yes Nausea and Vomiting Control Satisfactory: Yes Mental Status Recovered: Yes Vital Signs: Last Vital Signs Temp 36.2 C 09/26/20 06:00 Pulse 86 09/26/20 06:00 Resp 16 09/26/20 06:00 BP 114/80 09/26/20 06:00 Pulse Ox 96 09/26/20 06:00
[2020-09-26] MEDS: Docusate Sodium 100 MG Cap PO SCH ×3 (07:46→20:40)
--- NOTE | 2020-09-26 12:00 | PCM.PNPP ---
- General Info Date of Service: 09/26/20 Admission Dx/Problem (Free Text): Patient Status Order with Admit Dx/Problem 09/24/20 15:50 Patient Status [ADT] Routine Admission Diagnosis/Problem Admission Diagnosis/Problem Subjective Update: Uncomplicated PLTCS at 39w5d GA secondary to failure to progress in the setting of Chorioamnionitis and persistent tachycardia. Patient reports pain is well controlled. Minimal vaginal bleeding. Herrera catheter still in, draining yellow urine. Has not passed gas yet, but eating and drinking without nausea or vomiting Functional Status: Reports: Pain Controlled - Review of Systems General: Reports: No Symptoms HEENT: Reports: No Symptoms Pulmonary: Reports: No Symptoms Cardiovascular: Reports: No Symptoms Gastrointestinal: Reports: No Symptoms Genitourinary: Reports: No Symptoms Musculoskeletal: Reports: No Symptoms Skin: Reports: No Symptoms Neurological: Reports: No Symptoms Psychiatric: Reports: No Symptoms - General Info Date of Service: 09/26/20 - Patient Data Vital Signs - Most Recent: Last Vital Signs Temp 96.9 F 09/26/20 08:00 Pulse 94 09/26/20 08:00 Resp 16 09/26/20 08:00 BP 114/80 09/26/20 06:00 Pulse Ox 94 L 09/26/20 08:00 Weight - Most Recent: 74.389 kg I&O - Last 24 Hours: Intake & Output 09/25/20 09/26/20 09/26/20 22:59 06:59 14:59 Intake Total 1200 Output Total 150 450 Balance -150 750 Lab Results - Last 24 Hours: Laboratory Results - last 24 hr 09/26/20 Range/Units 06:20 Hgb 10.0 L (12.0-16.0) g/dL Hct 29.6 L (36.0-46.0) % Med Orders - Current: Current Medications Acetaminophen (Acetaminophen 500 Mg Tab) 1,000 mg PO Q6H PRN PRN Reason: Fever Bisacodyl (Bisacodyl 10 Mg Supp) 10 mg RECTAL ONETIME PRN PRN Reason: Constipation Carboprost Tromethamine (Carboprost Tromethamine 250 Mcg/1 Ml Amp) 250 mcg IM ASDIRECTED PRN PRN Reason: Post Hemorrhage Diphenhydramine HCl (Diphenhydramine 50 Mg/Ml Sdv) 25 mg IVPUSH Q6H PRN PRN Reason: Itching or Nausea Docusate Sodium (Docusate Sodium 100 Mg Cap) 100 mg PO BID [facility] Last Admin: 09/26/20 09:23 Dose: 100 mg Documented by: Emollient Ointment (Lanolin 100% Cream 7 Gm Tube) 0 gm TOP ASDIRECTED PRN PRN Reason: Sore Nipples Last Admin: 09/26/20 06:09 Dose: 7 gm Documented by: Lactated Ringer's (Ringers, Lactated) 1,000 mls @ 150 mls/hr IV ASDIRECTED [facility] Last Admin: 09/25/20 05:44 Dose: 150 mls/hr Documented by: Oxytocin/Sodium Chloride (Oxytocin 30 Unit/500 Ml-Ns) 30 unit in 500 mls @ 999 mls/hr IV TITRATE [facility] Tranexamic Acid 1,000 mg/ (Sodium Chloride) 110 mls @ 660 mls/hr IV ONETIME PRN PRN Reason: Bleeding Oxytocin/Sodium Chloride (Oxytocin 30 Unit/500 Ml-Ns) 30 unit in 500 mls @ 2 mls/hr IV TITRATE [facility]; Protocol Last Titration: 09/25/20 17:38 Dose: 0 munits/min, 0 mls/hr Documented by: Ampicillin Sodium 2 gm/ Sodium (Chloride) 100 mls @ 200 mls/hr IV Q6H [facility] Last Admin: 09/25/20 14:49 Dose: 200 mls/hr Documented by: Gentamicin Sulfate 100 mg/ (Sodium Chloride) 102.5 mls @ 195.238 mls/hr IV Q8H [facility] Last Admin: 09/25/20 17:06 Dose: 195.238 mls/hr Documented by: Lactated Ringer's (Ringers, Lactated) 1,000 mls @ 500 mls/hr IV BOLUS [facility] Last Admin: 09/25/20 18:01 Dose: 500 mls/hr Documented by: Oxytocin/Sodium Chloride (Oxytocin 30 Unit/500 Ml-Ns) 30 unit in 500 mls @ 250 mls/hr IV TITRATE JONATHAN Lactated Ringer's (Ringers, Lactated) 1,000 mls @ 125 mls/hr IV ASDIRECTED [facility] Last Admin: 09/25/20 19:57 Dose: 125 mls/hr Documented by: Oxytocin/Lactated Ringer's (Pitocin In Lr 30 Units/500 Ml) 30 unit in 500 mls @ 2 mls/hr IV TITRATE JONATHAN; Protocol Tranexamic Acid 1,000 mg/ (Sodium Chloride) 110 mls @ 660 mls/hr IV ONETIME PRN PRN Reason: Bleeding Ibuprofen (Ibuprofen 800 Mg Tab) 800 mg PO Q8H PRN PRN Reason: mild pain or fever Ketorolac Tromethamine (Ketorolac 30 Mg/Ml Sdv) 30 mg IVPUSH Q6H [facility]ATHAN Stop: 09/26/20 18:01 Last Admin: 09/26/20 06:03 Dose: 30 mg Documented by: Lidocaine HCl (Lidocaine 1% 50 Ml Mdv) 50 ml INJECT ONETIME PRN PRN Reason: Laceration repair Methylergonovine Maleate (Methylergonovine 0.2 Mg/1 Ml Amp) 0.2 mg IM ASDIRECTED PRN PRN Reason: Post Hemorrhage Methylergonovine Maleate (Methylergonovine 0.2 Mg/1 Ml Amp) 0.2 mg IM ONETIME PRN PRN Reason: Excessive Vaginal Bleeding Misoprostol (Misoprostol 200 Mcg Tab) 200 mcg PO ONETIME PRN PRN Reason: Post Hemorrhage Misoprostol (Misoprostol 25 Mcg (1/4 Of 100 Mcg) Tab) 25 mcg VAG ONETIME PRN PRN Reason: Cervical Ripening Misoprostol (Misoprostol 25 Mcg (1/4 Of 100 Mcg) Tab) 25 mcg VAG Q4H PRN PRN Reason: Cervical Ripening Misoprostol (Misoprostol 200 Mcg Tab) 1,000 mcg RECTAL ONETIME PRN PRN Reason: excessive bleeding Nalbuphine HCl (Nalbuphine 10 Mg/1 Ml Vial) 5 mg IVPUSH Q3H PRN PRN Reason: Pruritis Stop: 09/26/20 18:39 Ondansetron HCl (Ondansetron 4 Mg/2 Ml Sdv) 4 mg IVPUSH Q4H PRN PRN Reason: Nausea/Vomiting Ondansetron HCl (Ondansetron 4 Mg/2 Ml Sdv) 4 mg IVPUSH Q4H PRN PRN Reason: Nausea/Vomiting Oxycodone/Acetaminophen (Acetaminophen/Oxycodone 325-5 Mg Tab) 1 tab PO Q4H PRN PRN Reason: Pain (moderate 4-6) Oxycodone/Acetaminophen (Acetaminophen/Oxycodone 325-5 Mg Tab) 2 tab PO Q4H PRN PRN Reason: Pain (moderate 4-6) Oxytocin (Oxytocin 10 Units/1 Ml Sdv) 10 unit IM ASDIRECTED PRN PRN Reason: Excessive Vaginal Bleeding Sodium Chloride (Sodium Chloride 0.9% 10 Ml Syringe) 10 ml FLUSH ASDIRECTED PRN PRN Reason: Keep Vein Open Sterile Water (Water For Irrigation,Sterile 1,000 Ml Container) 1,000 ml IRR ASDIRECTED PRN PRN Reason: delivery Terbutaline Sulfate (Terbutaline 1 Mg/Ml Sdv) 0.25 mg SUBCUT ASDIRECTED PRN PRN Reason: Tacysystole Discontinued Medications Acetaminophen (Acetaminophen 500 Mg Tab) 1,000 mg PO ONETIME ONE Stop: 09/25/20 10:51 Last Admin: 09/25/20 10:51 Dose: 1,000 mg Documented by: Acetaminophen (Acetaminophen 500 Mg Tab) Confirm Administered Dose 1,000 mg .ROUTE .STK-MED ONE Stop: 09/25/20 10:51 Last Admin: 09/25/20 10:53 Dose: Not Given Documented by: Bupivacaine HCl (Bupivacaine 0.5% 30 Ml Sdv) Confirm Administered Dose 30 ml .ROUTE .STK-MED ONE Stop: 09/25/20 15:51 Last Admin: 09/26/20 07:45 Dose: Not Given Documented by: Cefazolin Sodium (Cefazolin 1 Gm Vial) Confirm Administered Dose 2 gm .ROUTE .STK-MED ONE Stop: 09/25/20 18:09 Citric Acid/Sodium Citrate (Citric Acid/Sodium Citrate Solution 30 Ml Cup) 30 ml PO ONETIME ONE Stop: 09/25/20 17:32 Fentanyl (Fentanyl 100 Mcg/2 Ml Sdv) Confirm Administered Dose 100 mcg .ROUTE .STK-MED ONE Stop: 09/25/20 01:22 Last Admin: 09/25/20 08:47 Dose: Not Given Documented by: Fentanyl (Fentanyl 100 Mcg/2 Ml Sdv) Confirm Administered Dose 100 mcg .ROUTE .STK-MED ONE Stop: 09/25/20 09:25 Last Admin: 09/25/20 11:42 Dose: Not Given Documented by: Fentanyl (Fentanyl 100 Mcg/2 Ml Sdv) Confirm Administered Dose 100 mcg .ROUTE .STK-MED ONE Stop: 09/25/20 15:51 Last Admin: 09/26/20 07:45 Dose: Not Given Documented by: Fentanyl (Fentanyl 100 Mcg/2 Ml Sdv) Confirm Administered Dose 100 mcg .ROUTE .STK-MED ONE Stop: 09/25/20 15:58 Last Admin: 09/26/20 07:46 Dose: Not Given Documented by: Fentanyl (Fentanyl 100 Mcg/2 Ml Sdv) Confirm Administered Dose 100 mcg .ROUTE .ST-MED ONE Stop: 09/25/20 17:57 Ropivacaine (Naropin 0.2%) Confirm Administered Dose 100 mls @ as directed .ROUTE .ST-MED ONE Stop: 09/25/20 01:22 Last Admin: 09/25/20 08:47 Dose: Not Given Documented by: Gentamicin Sulfate 140 mg/ (Sodium Chloride) 53.5 mls @ 100 mls/hr IV ONETIME ONE Stop: 09/25/20 09:32 Gentamicin Sulfate 140 mg/ (Sodium Chloride) 103.5 mls @ 207 mls/hr IV ONETIME ONE Stop: 09/25/20 09:29 Last Admin: 09/25/20 09:30 Dose: 206 mls/hr Documented by: Ropivacaine (Naropin 0.2%) Confirm Administered Dose 100 mls @ as directed .ROUTE .ST-MED ONE Stop: 09/25/20 09:25 Last Admin: 09/25/20 11:41 Dose: Not Given Documented by: Ropivacaine (Naropin 0.2%) Confirm Administered Dose 100 mls @ as directed .ROUTE .ST-MED ONE Stop: 09/25/20 15:58 Last Admin: 09/26/20 07:45 Dose: Not Given Documented by: Metronidazole 500 mg/ Premix 100 mls @ 100 mls/hr IV ONETIME ONE Stop: 09/25/20 18:35 Sodium Chloride (Normal Saline) Confirm Administered Dose 20 mls @ as directed .ROUTE .ST-MED ONE Stop: 09/25/20 18:09 Ibuprofen (Ibuprofen 800 Mg Tab) 800 mg PO Q8H PRN PRN Reason: mild pain or fever Ketamine HCl (Ketamine 500 Mg/10 Ml Mdv) Confirm Administered Dose 500 mg .ROUTE .STK-MED ONE Stop: 09/25/20 18:23 Ketorolac Tromethamine (Ketorolac 30 Mg/Ml Sdv) Confirm Administered Dose 30 mg .ROUTE .STK-MED ONE Stop: 09/25/20 18:09 Ketorolac Tromethamine (Ketorolac 30 Mg/Ml Sdv) 30 mg IVPUSH Q6H [facility] Stop: 09/26/20 19:31 Misoprostol (Misoprostol 25 Mcg (1/4 Of 100 Mcg) Tab) 25 mcg PO ONETIME ONE Stop: 09/24/20 18:09 Morphine Sulfate (Morphine Pf 10 Mg/10 Ml Sdv) Confirm Administered Dose 10 mg .ROUTE .STK-MED ONE Stop: 09/25/20 17:57 Nalbuphine HCl (Nalbuphine 10 Mg/1 Ml Vial) 10 mg IVPUSH Q1H PRN PRN Reason: Pain (severe 7-10) Last Admin: 09/24/20 23:39 Dose: 10 mg Documented by: Octyl Cyanoacrylate (Octyl 2-Cyanoacrylate 1 Tube) Confirm Administered Dose 1 applic .ROUTE .STK-MED ONE Stop: 09/25/20 18:04 Ondansetron HCl (Ondansetron 4 Mg/2 Ml Sdv) Confirm Administered Dose 4 mg .ROUTE .STK-MED ONE Stop: 09/25/20 18:09 Oxytocin (Oxytocin 10 Units/1 Ml Sdv) Confirm Administered Dose 20 unit .ROUTE .STK-MED ONE Stop: 09/25/20 18:09 Phenylephrine HCl (Phenylephrine 1% 10 Mg/Ml Sdv) Confirm Administered Dose 10 mg .ROUTE .STK-MED ONE Stop: 09/25/20 18:09 Propofol (Propofol 200 Mg/20 Ml Sdv) Confirm Administered Dose 200 mg .ROUTE .STK-MED ONE Stop: 09/25/20 18:18 - Infant Interaction Infant Disposition, : to Nursery Feeding: Attempted ; Nursed Fair/Poor Support Person: , Mother - Recovery Exam Fundal Tone: Firm Fundal Level: At Umbilicus Fundal Placement: Midline Lochia Amount: None, Small Perineum Description: Intact, Minimal Bruising/Swelling, Edematous Episiotomy/Laceration: None Bladder Status: Nonpalpable, Indwelling Catheter in Place Urinary Elimination: Indwelling Catheter - Exam General: Alert, Oriented Lungs: Normal Respiratory Effort GI/Abdominal Exam: Soft, Non-Tender Extremities: Pedal Edema Wound/Incisions: Dressing Dry and Intact Psy/Mental Status: Alert, Normal Affect, Normal Mood - Problem List & Annotations (1) Active labor at term SNOMED Code(s): 30910018 Code(s): VDC1755 - Status: Acute Current Visit: Yes (2) Status post primary low transverse section SNOMED Code(s): 492517284, 40724766, 843820198, 350294368, 095576062 Code(s): Z98.891 - HISTORY OF UTERINE SCAR FROM PREVIOUS SURGERY Status: Acute Current Visit: Yes - Problem List Review Problem List Initiated/Reviewed/Updated: Yes - My Orders Last 24 Hours: My Active Orders 09/25/20 17:00 Gentamicin 100 mg Sodium Chloride 0.9% [Normal Saline] 100 ml IV Q8H 09/25/20 17:31 Schedule Procedure [COMM] Per Unit Routine 09/25/20 17:45 Lactated Ringers [Ringers, Lactated] 1,000 ml IV BOLUS Oxytocin/0.9 % Sodium Chloride [Oxytocin 30 Unit/500 ML-NS] 30 unit in 500 ml IV TITRATE 09/25/20 19:00 Notify Provider Vital Signs [RC] PRN 09/25/20 19:22 Patient Status [ADT] Routine Ambulate [RC] PER UNIT ROUTINE Communication Order [RC] PER UNIT ROUTINE Communication Order [RC] PER UNIT ROUTINE Communication Order [RC] Per Unit Routine Notify Provider Intake and Out [RC] ASDIRECTED Notify Provider Vital Signs [RC] ASDIRECTED RT Incentive Spirometry [RC] Q2HWA Vital Signs [RC] PER UNIT ROUTINE Acetaminophen/oxyCODONE [Percocet 325-5 MG] 1 tab PO Q4H PRN Acetaminophen/oxyCODONE [Percocet 325-5 MG] 2 tab PO Q4H PRN Lanolin [Lansinoh HPA] See Dose Instructions TOP ASDIRECTED PRN Methylergonovine [Methergine] 0.2 mg IM ONETIME PRN Ondansetron [Zofran] 4 mg IVPUSH Q4H PRN Oxytocin [Pitocin] 10 unit IM ASDIRECTED PRN Tranexamic Acid [Cyklokapron] 1,000 mg Sodium Chloride 0.9% [Normal Saline] 100 ml IV ONETIME bisacodyL [Dulcolax] 10 mg RECTAL ONETIME PRN diphenhydrAMINE [Benadryl] 25 mg IVPUSH Q6H PRN miSOPROStoL [Cytotec] 1,000 mcg RECTAL ONETIME PRN Assess Lochia [WOMSER] Per Unit Routine Assess Uterine Involution [WOMSER] Per Unit Routine Breast Pump [WOMSER] Per Unit Routine Peripheral IV Discontinue [OM.PC] Routine Sequential Compression Device [OM.PC] Per Unit Routine 09/25/20 19:23 Antiembolic Devices [RC] PER UNIT ROUTINE 09/25/20 19:30 Lactated Ringers [Ringers, Lactated] 1,000 ml IV ASDIRECTED Oxytocin/Lactated Ringers [Pitocin in LR 30 Units/500 ML] 30 unit in 500 ml IV TITRATE 09/25/20 19:39 Acetaminophen [Tylenol Extra Strength] 1,000 mg PO Q6H PRN 09/25/20 21:00 Docusate Sodium [Colace] 100 mg PO BID 09/26/20 00:00 Ketorolac [Toradol] 30 mg IVPUSH Q6H 09/27/20 00:00 Ibuprofen [Motrin] 800 mg PO Q8H PRN - Plan Plan:: 25yo G1 now P1 s/p uncomplicated PLTCS at 39w5d secondary to failure to progress in the setting of chorioamnionitis. Patient treated for chorio with amp and gent. course unremarkable thus far Continue routine PP care.
[2020-09-26] MEDS: Acetaminophen/oxyCODONE 325-5 MG Tab PO PRN (20:39)
[2020-09-27] MEDS: Ibuprofen 800 MG Tab PO PRN ×2 (01:33→19:52)
[2020-09-27] MEDS: Acetaminophen/oxyCODONE 325-5 MG Tab PO PRN ×4 (01:35→19:53)
[2020-09-27] MEDS: Docusate Sodium 100 MG Cap PO SCH ×2 (09:26→20:02)
--- NOTE | 2020-09-27 09:43 | PCM.PNPP ---
- General Info Date of Service: 09/27/20 Admission Dx/Problem (Free Text): Patient Status Order with Admit Dx/Problem 09/24/20 15:50 Patient Status [ADT] Routine Admission Diagnosis/Problem Admission Diagnosis/Problem Functional Status: Reports: Pain Controlled, Tolerating Diet, Ambulating, Urinating - Review of Systems General: Reports: No Symptoms HEENT: Reports: No Symptoms Pulmonary: Reports: No Symptoms Cardiovascular: Reports: No Symptoms Gastrointestinal: Reports: No Symptoms Genitourinary: Reports: No Symptoms Musculoskeletal: Reports: No Symptoms Skin: Reports: No Symptoms Neurological: Reports: No Symptoms Psychiatric: Reports: No Symptoms - General Info Date of Service: 09/27/20 - Patient Data Vital Signs - Most Recent: Last Vital Signs Temp 97.6 F 09/27/20 08:20 Pulse 68 09/27/20 08:20 Resp 17 09/27/20 08:20 BP 122/75 09/27/20 08:20 Pulse Ox 98 09/27/20 08:20 Weight - Most Recent: 164 lb Med Orders - Current: Current Medications Acetaminophen (Acetaminophen 500 Mg Tab) 1,000 mg PO Q6H PRN PRN Reason: Fever Bisacodyl (Bisacodyl 10 Mg Supp) 10 mg RECTAL ONETIME PRN PRN Reason: Constipation Carboprost Tromethamine (Carboprost Tromethamine 250 Mcg/1 Ml Amp) 250 mcg IM ASDIRECTED PRN PRN Reason: Post Hemorrhage Diphenhydramine HCl (Diphenhydramine 50 Mg/Ml Sdv) 25 mg IVPUSH Q6H PRN PRN Reason: Itching or Nausea Docusate Sodium (Docusate Sodium 100 Mg Cap) 100 mg PO BID [facility] Last Admin: 09/27/20 09:26 Dose: 100 mg Documented by: Emollient Ointment (Lanolin 100% Cream 7 Gm Tube) 0 gm TOP ASDIRECTED PRN PRN Reason: Sore Nipples Last Admin: 09/26/20 06:09 Dose: 7 gm Documented by: Lactated Ringer's (Ringers, Lactated) 1,000 mls @ 150 mls/hr IV ASDIRECTED [facility] Last Admin: 09/25/20 05:44 Dose: 150 mls/hr Documented by: Oxytocin/Sodium Chloride (Oxytocin 30 Unit/500 Ml-Ns) 30 unit in 500 mls @ 999 mls/hr IV TITRATE [facility] Tranexamic Acid 1,000 mg/ (Sodium Chloride) 110 mls @ 660 mls/hr IV ONETIME PRN PRN Reason: Bleeding Oxytocin/Sodium Chloride (Oxytocin 30 Unit/500 Ml-Ns) 30 unit in 500 mls @ 2 mls/hr IV TITRATE [facility]; Protocol Last Titration: 09/25/20 17:38 Dose: 0 munits/min, 0 mls/hr Documented by: Ampicillin Sodium 2 gm/ Sodium (Chloride) 100 mls @ 200 mls/hr IV Q6H [facility] Last Admin: 09/25/20 14:49 Dose: 200 mls/hr Documented by: Gentamicin Sulfate 100 mg/ (Sodium Chloride) 102.5 mls @ 195.238 mls/hr IV Q8H [facility] Last Admin: 09/25/20 17:06 Dose: 195.238 mls/hr Documented by: Lactated Ringer's (Ringers, Lactated) 1,000 mls @ 500 mls/hr IV BOLUS [facility] Last Admin: 09/25/20 18:01 Dose: 500 mls/hr Documented by: Oxytocin/Sodium Chloride (Oxytocin 30 Unit/500 Ml-Ns) 30 unit in 500 mls @ 250 mls/hr IV TITRATE [facility] Lactated Ringer's (Ringers, Lactated) 1,000 mls @ 125 mls/hr IV ASDIRECTED [facility] Last Admin: 09/25/20 19:57 Dose: 125 mls/hr Documented by: Oxytocin/Lactated Ringer's (Pitocin In Lr 30 Units/500 Ml) 30 unit in 500 mls @ 2 mls/hr IV TITRATE [facility]; Protocol Tranexamic Acid 1,000 mg/ (Sodium Chloride) 110 mls @ 660 mls/hr IV ONETIME PRN PRN Reason: Bleeding Ibuprofen (Ibuprofen 800 Mg Tab) 800 mg PO Q8H PRN PRN Reason: mild pain or fever Last Admin: 09/27/20 01:33 Dose: 800 mg Documented by: Lidocaine HCl (Lidocaine 1% 50 Ml Mdv) 50 ml INJECT ONETIME PRN PRN Reason: Laceration repair Methylergonovine Maleate (Methylergonovine 0.2 Mg/1 Ml Amp) 0.2 mg IM ASDIRECTED PRN PRN Reason: Post Hemorrhage Methylergonovine Maleate (Methylergonovine 0.2 Mg/1 Ml Amp) 0.2 mg IM ONETIME PRN PRN Reason: Excessive Vaginal Bleeding Misoprostol (Misoprostol 200 Mcg Tab) 200 mcg PO ONETIME PRN PRN Reason: Post Hemorrhage Misoprostol (Misoprostol 25 Mcg (1/4 Of 100 Mcg) Tab) 25 mcg VAG ONETIME PRN PRN Reason: Cervical Ripening Misoprostol (Misoprostol 25 Mcg (1/4 Of 100 Mcg) Tab) 25 mcg VAG Q4H PRN PRN Reason: Cervical Ripening Misoprostol (Misoprostol 200 Mcg Tab) 1,000 mcg RECTAL ONETIME PRN PRN Reason: excessive bleeding Ondansetron HCl (Ondansetron 4 Mg/2 Ml Sdv) 4 mg IVPUSH Q4H PRN PRN Reason: Nausea/Vomiting Ondansetron HCl (Ondansetron 4 Mg/2 Ml Sdv) 4 mg IVPUSH Q4H PRN PRN Reason: Nausea/Vomiting Oxycodone/Acetaminophen (Acetaminophen/Oxycodone 325-5 Mg Tab) 1 tab PO Q4H PRN PRN Reason: Pain (moderate 4-6) Last Admin: 09/27/20 07:07 Dose: 1 tab Documented by: Oxycodone/Acetaminophen (Acetaminophen/Oxycodone 325-5 Mg Tab) 2 tab PO Q4H PRN PRN Reason: Pain (moderate 4-6) Oxytocin (Oxytocin 10 Units/1 Ml Sdv) 10 unit IM ASDIRECTED PRN PRN Reason: Excessive Vaginal Bleeding Sodium Chloride (Sodium Chloride 0.9% 10 Ml Syringe) 10 ml FLUSH ASDIRECTED PRN PRN Reason: Keep Vein Open Sterile Water (Water For Irrigation,Sterile 1,000 Ml Container) 1,000 ml IRR ASDIRECTED PRN PRN Reason: delivery Terbutaline Sulfate (Terbutaline 1 Mg/Ml Sdv) 0.25 mg SUBCUT ASDIRECTED PRN PRN Reason: Tacysystole Discontinued Medications Acetaminophen (Acetaminophen 500 Mg Tab) 1,000 mg PO ONETIME ONE Stop: 09/25/20 10:51 Last Admin: 09/25/20 10:51 Dose: 1,000 mg Documented by: Acetaminophen (Acetaminophen 500 Mg Tab) Confirm Administered Dose 1,000 mg .ROUTE .STK-MED ONE Stop: 09/25/20 10:51 Last Admin: 09/25/20 10:53 Dose: Not Given Documented by: Bupivacaine HCl (Bupivacaine 0.5% 30 Ml Sdv) Confirm Administered Dose 30 ml .ROUTE .[facility]-MED ONE Stop: 09/25/20 15:51 Last Admin: 09/26/20 07:45 Dose: Not Given Documented by: Cefazolin Sodium (Cefazolin 1 Gm Vial) Confirm Administered Dose 2 gm .ROUTE .[facility]-MED ONE Stop: 09/25/20 18:09 Citric Acid/Sodium Citrate (Citric Acid/Sodium Citrate Solution 30 Ml Cup) 30 ml PO ONETIME ONE Stop: 09/25/20 17:32 Fentanyl (Fentanyl 100 Mcg/2 Ml Sdv) Confirm Administered Dose 100 mcg .ROUTE .[facility]-MED ONE Stop: 09/25/20 01:22 Last Admin: 09/25/20 08:47 Dose: Not Given Documented by: Fentanyl (Fentanyl 100 Mcg/2 Ml Sdv) Confirm Administered Dose 100 mcg .ROUTE .[facility] ONE Stop: 09/25/20 09:25 Last Admin: 09/25/20 11:42 Dose: Not Given Documented by: Fentanyl (Fentanyl 100 Mcg/2 Ml Sdv) Confirm Administered Dose 100 mcg .ROUTE .[facility]-MED ONE Stop: 09/25/20 15:51 Last Admin: 09/26/20 07:45 Dose: Not Given Documented by: Fentanyl (Fentanyl 100 Mcg/2 Ml Sdv) Confirm Administered Dose 100 mcg .ROUTE .[facility]-MED ONE Stop: 09/25/20 15:58 Last Admin: 09/26/20 07:46 Dose: Not Given Documented by: Fentanyl (Fentanyl 100 Mcg/2 Ml Sdv) Confirm Administered Dose 100 mcg .ROUTE .[facility]-MED ONE Stop: 09/25/20 17:57 Ropivacaine (Naropin 0.2%) Confirm Administered Dose 100 mls @ [facility] Stop: 09/25/20 01:22 Last Admin: 09/25/20 08:47 Dose: Not Given Documented by: Gentamicin Sulfate 140 mg/ (Sodium Chloride) 53.5 mls @ 100 mls/hr IV ONETIME ONE Stop: 09/25/20 09:32 Gentamicin Sulfate 140 mg/ (Sodium Chloride) 103.5 mls @ 207 mls/hr IV ONETIME ONE Stop: 09/25/20 09:29 Last Admin: 09/25/20 09:30 Dose: 206 mls/hr Documented by: Ropivacaine (Naropin 0.2%) Confirm Administered Dose 100 mls @ as directed .ROUTE .STK-MED ONE Stop: 09/25/20 09:25 Last Admin: 09/25/20 11:41 Dose: Not Given Documented by: Ropivacaine (Naropin 0.2%) Confirm Administered Dose 100 mls @ as directed .ROUTE .STK-MED ONE Stop: 09/25/20 15:58 Last Admin: 09/26/20 07:45 Dose: Not Given Documented by: Metronidazole 500 mg/ Premix 100 mls @ 100 mls/hr IV ONETIME ONE Stop: 09/25/20 18:35 Sodium Chloride (Normal Saline) Confirm Administered Dose 20 mls @ as directed .ROUTE .STK-MED ONE Stop: 09/25/20 18:09 Ibuprofen (Ibuprofen 800 Mg Tab) 800 mg PO Q8H PRN PRN Reason: mild pain or fever Ketamine HCl (Ketamine 500 Mg/10 Ml Mdv) Confirm Administered Dose 500 mg .ROUTE .STK-MED ONE Stop: 09/25/20 18:23 Ketorolac Tromethamine (Ketorolac 30 Mg/Ml Sdv) Confirm Administered Dose 30 mg .ROUTE .STK-MED ONE Stop: 09/25/20 18:09 Ketorolac Tromethamine (Ketorolac 30 Mg/Ml Sdv) 30 mg IVPUSH Q6H [facility] Stop: 09/26/20 19:31 Ketorolac Tromethamine (Ketorolac 30 Mg/Ml Sdv) 30 mg IVPUSH Q6H [facility] Stop: 09/26/20 18:01 Last Admin: 09/26/20 18:07 Dose: 30 mg Documented by: Misoprostol (Misoprostol 25 Mcg (1/4 Of 100 Mcg) Tab) 25 mcg PO ONETIME ONE Stop: 09/24/20 18:09 Morphine Sulfate (Morphine Pf 10 Mg/10 Ml Sdv) Confirm Administered Dose 10 mg .ROUTE .STK-MED ONE Stop: 09/25/20 17:57 Nalbuphine HCl (Nalbuphine 10 Mg/1 Ml Vial) 10 mg IVPUSH Q1H PRN PRN Reason: Pain (severe 7-10) Last Admin: 09/24/20 23:39 Dose: 10 mg Documented by: Nalbuphine HCl (Nalbuphine 10 Mg/1 Ml Vial) 5 mg IVPUSH Q3H PRN PRN Reason: Pruritis Stop: 09/26/20 18:39 Octyl Cyanoacrylate (Octyl 2-Cyanoacrylate 1 Tube) Confirm Administered Dose 1 applic .ROUTE .STK-MED ONE Stop: 09/25/20 18:04 Ondansetron HCl (Ondansetron 4 Mg/2 Ml Sdv) Confirm Administered Dose 4 mg .ROUTE .STK-MED ONE Stop: 09/25/20 18:09 Oxytocin (Oxytocin 10 Units/1 Ml Sdv) Confirm Administered Dose 20 unit .ROUTE .STK-MED ONE Stop: 09/25/20 18:09 Phenylephrine HCl (Phenylephrine 1% 10 Mg/Ml Sdv) Confirm Administered Dose 10 mg .ROUTE .STK-MED ONE Stop: 09/25/20 18:09 Propofol (Propofol 200 Mg/20 Ml Sdv) Confirm Administered Dose 200 mg .ROUTE .STK-MED ONE Stop: 09/25/20 18:18 - Interaction Infant Disposition, : to Nursery Feeding: Attempted ; Nursed Fair/Poor Support Person: , Mother - Recovery Exam Fundal Tone: Firm Fundal Level: 2 Fingerbreadths Below Umbilicus Fundal Placement: Midline Lochia Amount: Scant Lochia Color: Rubra/Red Perineum Description: Intact, Minimal Bruising/Swelling Episiotomy/Laceration: None Bladder Status: Voiding - Exam General: Alert, Oriented, Cooperative, No Acute Distress Lungs: Normal Respiratory Effort Cardiovascular: Regular Rate, Regular Rhythm GI/Abdominal Exam: Soft, Non-Tender Extremities: Normal Inspection, Normal Range of Motion, Non-Tender, Normal Capillary Refill Skin: Warm, Dry, Intact Neurological: No New Focal Deficit, Normal Speech, Normal Tone, Strength Equal Bilateral, Sensation Intact Psy/Mental Status: Alert, Normal Affect, Normal Mood - Problem List & Annotations (1) Status post primary low transverse section SNOMED Code(s): 853362597, [id number], [id number], 388528040, [id number] Code(s): Z98.891 - HISTORY OF UTERINE SCAR FROM PREVIOUS SURGERY Status: Acute Priority: High Current Visit: Yes - Problem List Review Problem List Initiated/Reviewed/Updated: Yes - Plan Plan:: 25yo G1 now P1 s/p uncomplicated PLTCS at 39w5d secondary to failure to progress in the setting of chorioamnionitis. Patient treated for chorio with amp and gent. course unremarkable thus far Continue routine PP care. A: Ambulating, tolerating diet, voiding. Continues to pump to feed; in nursery with IV during rounds; No concerns/questions at this time. P: Continue routine plan of care.
[2020-09-28] MEDS: Ibuprofen 800 MG Tab PO PRN ×3 (04:55→22:53)
[2020-09-28] MEDS: Acetaminophen/oxyCODONE 325-5 MG Tab PO PRN ×3 (04:59→15:24)
[2020-09-28] MEDS: Docusate Sodium 100 MG Cap PO SCH ×2 (08:59→20:25)
--- NOTE | 2020-09-28 09:26 | PCM.DCSUM1 ---
Discharge Summary - Hospital Course Free Text/Narrative:: Follow up in the clinic in one week for incision check. Follow up again at six weeks for routine visit; sooner, if needed. Diagnosis: Stroke: No Modified Labadie Scale: No Symptoms at All Modified Labadie Scale Score: 0 - Discharge Data Discharge Date: 09/28/20 Discharge Disposition: Home, Self-Care 01 Condition: Good - Referral to Home Health Primary Care Physician: PCP None - Discharge Diagnosis/Problem(s) (1) Status post primary low transverse section SNOMED Code(s): 657463565, [id number], [id number], [id number], [id number] ICD Code: Z98.891 - HISTORY OF UTERINE SCAR FROM PREVIOUS SURGERY Status: Acute Priority: High Current Visit: Yes - Patient Instructions Diet: Regular Diet as Tolerated, Drink 8-10+ Glasses/Day Activity: As Tolerated Driving: Do Not Drive Showering/Bathing: May Shower Wound/Incision Care: Keep Operative Site/Wound Site Clean and Dry Notify Provider of: Fever, Increased Pain, Swelling and Redness, Drainage, Nausea and/or Vomiting - Discharge Plan *PRESCRIPTION DRUG MONITORING PROGRAM REVIEWED*: Not Applicable *COPY OF PRESCRIPTION DRUG MONITORING REPORT IN PATIENT LEO: Not Applicable Prescriptions/Med Rec: Ibuprofen [Motrin] 800 mg PO Q8H PRN #90 tablet PRN Reason: mild pain or fever Acetaminophen/oxyCODONE [Percocet 325-5 MG] 1 - 2 tab PO Q6H PRN #16 tablet PRN Reason: Pain (Moderate 4-6) Home Medications: Home Meds Pnv No.95/Ferrous Fum/Folic AC [ Tablet] 1 tab PO DAILY 09/24/20 [History] Acetaminophen/oxyCODONE [Percocet 325-5 MG] 1 - 2 tab PO Q6H PRN #16 tablet 09/28/20 [Rx] Ibuprofen [Motrin] 800 mg PO Q8H PRN #90 tablet 09/28/20 [Rx] Oxygen Therapy Mode: Room Air Referrals: Joey Vásquez [Ordering Only Provider] - 11/03/20 1:00 pm (With Dr. Steel) Riana Parker MD [Physician] - 10/01/20 11:00 am - Discharge Summary/Plan Comment DC Time >30 min.: Yes - General Info Date of Service: 09/28/20 Admission Dx/Problem (Free Text: Patient Status Order with Admit Dx/Problem 09/24/20 15:50 Patient Status [ADT] Routine Admission Diagnosis/Problem Admission Diagnosis/Problem Functional Status: Reports: Pain Controlled, Tolerating Diet, Ambulating, U rinating - Review of Systems General: Reports: No Symptoms HEENT: Reports: No Symptoms Pulmonary: Reports: No Symptoms Cardiovascular: Reports: No Symptoms Gastrointestinal: Reports: No Symptoms Genitourinary: Reports: No Symptoms Musculoskeletal: Reports: No Symptoms Skin: Reports: No Symptoms Neurological: Reports: No Symptoms Psychiatric: Reports: No Symptoms - Patient Data Vitals - Most Recent: Last Vital Signs Temp 97.3 F 09/28/20 07:50 Pulse 63 09/28/20 07:50 Resp 16 09/28/20 07:50 BP 112/61 09/28/20 07:50 Pulse Ox 96 09/28/20 07:50 Weight - Most Recent: 164 lb Lab Results - Last 24 hrs: Laboratory Results - last 24 hr 09/27/20 Range/Units 20:56 WBC 15.45 H (4.0-11.0) K/uL RBC 3.00 L (4.30-5.90) M/uL Hgb 9.1 L (12.0-16.0) g/dL Hct 27.2 L (36.0-46.0) % MCV 90.7 (80.0-98.0) fL MCH 30.3 (27.0-32.0) pg MCHC 33.5 (31.0-37.0) g/dL RDW Std Deviation 44.3 (28.0-62.0) fl RDW Coeff of Beryl 13 (11.0-15.0) % Plt Count 253 (150-400) K/uL MPV 11.20 (7.40-12.00) fL Neut % (Auto) 84.6 H (48.0-80.0) % Lymph % (Auto) 10.4 L (16.0-40.0) % [place] % (Auto) 4.1 (0.0-15.0) % Eos % (Auto) 0.8 (0.0-7.0) % Baso % (Auto) 0.1 (0.0-1.5) % Neut # (Auto) 13.1 H (1.4-5.7) K/uL Lymph # (Auto) 1.6 (0.6-2.4) K/uL [place] # (Auto) 0.6 (0.0-0.8) K/uL Eos # (Auto) 0.1 (0.0-0.7) K/uL Baso # (Auto) 0.0 (0.0-0.1) K/uL Nucleated RBC % 0.0 /100WBC Nucleated RBCs # 0 K/uL Med Orders - Current: Current Medications Acetaminophen (Acetaminophen 500 Mg Tab) 1,000 mg PO Q6H PRN PRN Reason: Fever Bisacodyl (Bisacodyl 10 Mg Supp) 10 mg RECTAL ONETIME PRN PRN Reason: Constipation Carboprost Tromethamine (Carboprost Tromethamine 250 Mcg/1 Ml Amp) 250 mcg IM ASDIRECTED PRN PRN Reason: Post Hemorrhage Diphenhydramine HCl (Diphenhydramine 50 Mg/Ml Sdv) 25 mg IVPUSH Q6H PRN PRN Reason: Itching or Nausea Docusate Sodium (Docusate Sodium 100 Mg Cap) 100 mg PO BID [facility] Last Admin: 09/28/20 08:59 Dose: 100 mg Documented by: Emollient Ointment (Lanolin 100% Cream 7 Gm Tube) 0 gm TOP ASDIRECTED PRN PRN Reason: Sore Nipples Last Admin: 09/26/20 06:09 Dose: 7 gm Documented by: Lactated Ringer's (Ringers, Lactated) 1,000 mls @ 150 mls/hr IV ASDIRECTED [facility] Last Admin: 09/25/20 05:44 Dose: 150 mls/hr Documented by: Oxytocin/Sodium Chloride (Oxytocin 30 Unit/500 Ml-Ns) 30 unit in 500 mls @ 999 mls/hr IV TITRATE JONATHAN Tranexamic Acid 1,000 mg/ (Sodium Chloride) 110 mls @ 660 mls/hr IV ONETIME PRN PRN Reason: Bleeding Oxytocin/Sodium Chloride (Oxytocin 30 Unit/500 Ml-Ns) 30 unit in 500 mls @ 2 mls/hr IV TITRATE [facility]; Protocol Last Titration: 09/25/20 17:38 Dose: 0 munits/min, 0 mls/hr Documented by: Lactated Ringer's (Ringers, Lactated) 1,000 mls @ 500 mls/hr IV BOLUS [facility] Last Admin: 09/25/20 18:01 Dose: 500 mls/hr Documented by: Oxytocin/Sodium Chloride (Oxytocin 30 Unit/500 Ml-Ns) 30 unit in 500 mls @ 250 mls/hr IV TITRATE JONATHAN Lactated Ringer's (Ringers, Lactated) 1,000 mls @ 125 mls/hr IV ASDIRECTED [facility] Last Admin: 09/25/20 19:57 Dose: 125 mls/hr Documented by: Oxytocin/Lactated Ringer's (Pitocin In Lr 30 Units/500 Ml) 30 unit in 500 mls @ 2 mls/hr IV TITRATE [facility]; Protocol Tranexamic Acid 1,000 mg/ (Sodium Chloride) 110 mls @ 660 mls/hr IV ONETIME PRN PRN Reason: Bleeding Ibuprofen (Ibuprofen 800 Mg Tab) 800 mg PO Q8H PRN PRN Reason: mild pain or fever Last Admin: 09/28/20 04:55 Dose: 800 mg Documented by: Lidocaine HCl (Lidocaine 1% 50 Ml Mdv) 50 ml INJECT ONETIME PRN PRN Reason: Laceration repair Methylergonovine Maleate (Methylergonovine 0.2 Mg/1 Ml Amp) 0.2 mg IM ASDIRECTED PRN PRN Reason: Post Hemorrhage Methylergonovine Maleate (Methylergonovine 0.2 Mg/1 Ml Amp) 0.2 mg IM ONETIME PRN PRN Reason: Excessive Vaginal Bleeding Misoprostol (Misoprostol 200 Mcg Tab) 200 mcg PO ONETIME PRN PRN Reason: Post Hemorrhage Misoprostol (Misoprostol 25 Mcg (1/4 Of 100 Mcg) Tab) 25 mcg VAG ONETIME PRN PRN Reason: Cervical Ripening Misoprostol (Misoprostol 25 Mcg (1/4 Of 100 Mcg) Tab) 25 mcg VAG Q4H PRN PRN Reason: Cervical Ripening Misoprostol (Misoprostol 200 Mcg Tab) 1,000 mcg RECTAL ONETIME PRN PRN Reason: excessive bleeding Ondansetron HCl (Ondansetron 4 Mg/2 Ml Sdv) 4 mg IVPUSH Q4H PRN PRN Reason: Nausea/Vomiting Ondansetron HCl (Ondansetron 4 Mg/2 Ml Sdv) 4 mg IVPUSH Q4H PRN PRN Reason: Nausea/Vomiting Oxycodone/Acetaminophen (Acetaminophen/Oxycodone 325-5 Mg Tab) 1 tab PO Q4H PRN PRN Reason: Pain (moderate 4-6) Last Admin: 09/28/20 04:59 Dose: 1 tab Documented by: Oxycodone/Acetaminophen (Acetaminophen/Oxycodone 325-5 Mg Tab) 2 tab PO Q4H PRN PRN Reason: Pain (moderate 4-6) Oxytocin (Oxytocin 10 Units/1 Ml Sdv) 10 unit IM ASDIRECTED PRN PRN Reason: Excessive Vaginal Bleeding Sodium Chloride (Sodium Chloride 0.9% 10 Ml Syringe) 10 ml FLUSH ASDIRECTED PRN PRN Reason: Keep Vein Open Sterile Water (Water For Irrigation,Sterile 1,000 Ml Container) 1,000 ml IRR ASDIRECTED PRN PRN Reason: delivery Terbutaline Sulfate (Terbutaline 1 Mg/Ml Sdv) 0.25 mg SUBCUT ASDIRECTED PRN PRN Reason: Tacysystole Discontinued Medications Acetaminophen (Acetaminophen 500 Mg Tab) 1,000 mg PO ONETIME ONE Stop: 09/25/20 10:51 Last Admin: 09/25/20 10:51 Dose: 1,000 mg Documented by: Acetaminophen (Acetaminophen 500 Mg Tab) Confirm Administered Dose 1,000 mg .ROUTE .STK-MED ONE Stop: 09/25/20 10:51 Last Admin: 09/25/20 10:53 Dose: Not Given Documented by: Bupivacaine HCl (Bupivacaine 0.5% 30 Ml Sdv) Confirm Administered Dose 30 ml .ROUTE .STK-MED ONE Stop: 09/25/20 15:51 Last Admin: 09/26/20 07:45 Dose: Not Given Documented by: Cefazolin Sodium (Cefazolin 1 Gm Vial) Confirm Administered Dose 2 gm .ROUTE .STK-MED ONE Stop: 09/25/20 18:09 Citric Acid/Sodium Citrate (Citric Acid/Sodium Citrate Solution 30 Ml Cup) 30 ml PO ONETIME ONE Stop: 09/25/20 17:32 Fentanyl (Fentanyl 100 Mcg/2 Ml Sdv) Confirm Administered Dose 100 mcg .ROUTE .[facility]-MED ONE Stop: 09/25/20 01:22 Last Admin: 09/25/20 08:47 Dose: Not Given Documented by: Fentanyl (Fentanyl 100 Mcg/2 Ml Sdv) Confirm Administered Dose 100 mcg .ROUTE .STK-MED ONE Stop: 09/25/20 09:25 Last Admin: 09/25/20 11:42 Dose: Not Given Documented by: Fentanyl (Fentanyl 100 Mcg/2 Ml Sdv) Confirm Administered Dose 100 mcg .ROUTE .STK-MED ONE Stop: 09/25/20 15:51 Last Admin: 09/26/20 07:45 Dose: Not Given Documented by: Fentanyl (Fentanyl 100 Mcg/2 Ml Sdv) Confirm Administered Dose 100 mcg .ROUTE .STK-MED ONE Stop: 09/25/20 15:58 Last Admin: 09/26/20 07:46 Dose: Not Given Documented by: Fentanyl (Fentanyl 100 Mcg/2 Ml Sdv) Confirm Administered Dose 100 mcg .ROUTE .STK-MED ONE Stop: 09/25/20 17:57 Ropivacaine (Naropin 0.2%) Confirm Administered Dose 100 mls @ as directed .ROUTE .ST-MED ONE Stop: 09/25/20 01:22 Last Admin: 09/25/20 08:47 Dose: Not Given Documented by: Ampicillin Sodium 2 gm/ Sodium (Chloride) 100 mls @ 200 mls/hr IV Q6H [facility] Last Admin: 09/25/20 14:49 Dose: 200 mls/hr Documented by: Gentamicin Sulfate 140 mg/ (Sodium Chloride) 53.5 mls @ 100 mls/hr IV ONETIME ONE Stop: 09/25/20 09:32 Gentamicin Sulfate 100 mg/ (Sodium Chloride) 102.5 mls @ 195.238 mls/hr IV Q8H [facility] Last Admin: 09/25/20 17:06 Dose: 195.238 mls/hr Documented by: Gentamicin Sulfate 140 mg/ (Sodium Chloride) 103.5 mls @ 207 mls/hr IV ONETIME ONE Stop: 09/25/20 09:29 Last Admin: 09/25/20 09:30 Dose: 206 mls/hr Documented by: Ropivacaine (Naropin 0.2%) Confirm Administered Dose 100 mls @ as directed .ROUTE .STK-MED ONE Stop: 09/25/20 09:25 Last Admin: 09/25/20 11:41 Dose: Not Given Documented by: Ropivacaine (Naropin 0.2%) Confirm Administered Dose 100 mls @ as directed .ROUTE .STK-MED ONE Stop: 09/25/20 15:58 Last Admin: 09/26/20 07:45 Dose: Not Given Documented by: Metronidazole 500 mg/ Premix 100 mls @ 100 mls/hr IV ONETIME ONE Stop: 09/25/20 18:35 Sodium Chloride (Normal Saline) Confirm Administered Dose 20 mls @ as directed .ROUTE .STK-MED ONE Stop: 09/25/20 18:09 Ibuprofen (Ibuprofen 800 Mg Tab) 800 mg PO Q8H PRN PRN Reason: mild pain or fever Ketamine HCl (Ketamine 500 Mg/10 Ml Mdv) Confirm Administered Dose 500 mg .ROUTE .STK-MED ONE Stop: 09/25/20 18:23 Ketorolac Tromethamine (Ketorolac 30 Mg/Ml Sdv) Confirm Administered Dose 30 mg .ROUTE .STK-MED ONE Stop: 09/25/20 18:09 Ketorolac Tromethamine (Ketorolac 30 Mg/Ml Sdv) 30 mg IVPUSH Q6H [facility] Stop: 09/26/20 19:31 Ketorolac Tromethamine (Ketorolac 30 Mg/Ml Sdv) 30 mg IVPUSH Q6H [facility] Stop: 09/26/20 18:01 Last Admin: 09/26/20 18:07 Dose: 30 mg Documented by: Misoprostol (Misoprostol 25 Mcg (1/4 Of 100 Mcg) Tab) 25 mcg PO ONETIME ONE Stop: 09/24/20 18:09 Morphine Sulfate (Morphine Pf 10 Mg/10 Ml Sdv) Confirm Administered Dose 10 mg .ROUTE .STK-MED ONE Stop: 09/25/20 17:57 Nalbuphine HCl (Nalbuphine 10 Mg/1 Ml Vial) 10 mg IVPUSH Q1H PRN PRN Reason: Pain (severe 7-10) Last Admin: 09/24/20 23:39 Dose: 10 mg Documented by: Nalbuphine HCl (Nalbuphine 10 Mg/1 Ml Vial) 5 mg IVPUSH Q3H PRN PRN Reason: Pruritis Stop: 09/26/20 18:39 Octyl Cyanoacrylate (Octyl 2-Cyanoacrylate 1 Tube) Confirm Administered Dose 1 applic .ROUTE .STK-MED ONE Stop: 09/25/20 18:04 Ondansetron HCl (Ondansetron 4 Mg/2 Ml Sdv) Confirm Administered Dose 4 mg .ROUTE .STK-MED ONE Stop: 09/25/20 18:09 Oxytocin (Oxytocin 10 Units/1 Ml Sdv) Confirm Administered Dose 20 unit .ROUTE .STK-MED ONE Stop: 09/25/20 18:09 Phenylephrine HCl (Phenylephrine 1% 10 Mg/Ml Sdv) Confirm Administered Dose 10 mg .ROUTE .STK-MED ONE Stop: 09/25/20 18:09 Propofol (Propofol 200 Mg/20 Ml Sdv) Confirm Administered Dose 200 mg .ROUTE .STK-MED ONE Stop: 09/25/20 18:18 - Exam General: Reports: Alert, Oriented, Cooperative, No Acute Distress Lungs: Reports: Normal Respiratory Effort Cardiovascular: Reports: Regular Rate, Regular Rhythm GI/Abdominal Exam: Soft, Non-Tender (Female) Exam: Deferred Rectal (Female) Exam: Deferred Back Exam: Reports: Normal Inspection, Full Range of Motion Extremities: Normal Inspection, Normal Range of Motion, Non-Tender, Normal Capillary Refill Skin: Reports: Warm, Dry, Intact Wound/Incisions: Reports: Healing Well Neurological: Reports: No New Focal Deficit, Normal Speech, Normal Tone, Strength Equal Bilateral, Sensation Intact Psy/Mental Status: Reports: Alert, Normal Affect, Normal Mood
[2020-09-29] MEDS: Acetaminophen/oxyCODONE 325-5 MG Tab PO PRN ×4 (01:17→20:33)
[2020-09-29] MEDS: Ibuprofen 800 MG Tab PO PRN ×2 (07:42→15:45)
[2020-09-29] MEDS: Docusate Sodium 100 MG Cap PO SCH ×2 (13:52→20:31)
--- NOTE | 2020-09-30 08:51 | OR ---
SURGEON: Riana Steel MD DATE OF PROCEDURE: 09/25/2020 INDICATION FOR SURGERY: Failure to progress in the setting of chorioamnionitis and persistent tachycardia. PREOPERATIVE DIAGNOSES: Failure to progress, chorioamnionitis, and persistent tachycardia. POSTOPERATIVE DIAGNOSES: Meconium-stained fluid, failure to progress, chorioamnionitis, and tachycardia. OPERATION: Primary low-transverse section. PRIMARY SURGEON: Riana Steel MD RECOVERY RN: Dr. Garcia. ANESTHESIA: Spinal and epidural. ESTIMATED BLOOD LOSS: 600. URINE OUTPUT: Adequate. DRAIN AND PACK: Herrera catheter, draining clear urine. SPECIMEN: Placenta. FINDINGS: Live male baby, 7 pounds 3 ounces, scores 9 and 9. No nuchal cord. Heavily meconium-stained fluid. PLACENTA DELIVERY METHOD: Spontaneous. MATERNAL DELIVERY COMPLICATION: None. COMPLICATIONS: None. TECHNIQUE: Beronica Iglesias was taken to the operating room. She was then transferred to the operating table and placed in a dorsal supine position with a leftward tilt. After adequate anesthesia was confirmed, she was prepped and draped in the usual sterile fashion. A time-out was completed. With IV running and Herrera catheter draining, a Pfannenstiel skin incision was made. The incision was carried down with Bovie cautery through the subcutaneous tissue to the underlying rectus fascia. The rectus fascia was then incised in the midline and extended laterally sharply. The underlying rectus muscle was dissected off and in the midline, and the parietal peritoneum was opened. A bladder blade and Wu retractors were placed. The lower uterine segment was identified in the surgical field, and a bladder flap was made. The lower uterine segment was then incised in a transverse fashion. The incision was extended laterally with cephalocaudal traction. The infant's vertex was delivered atraumatically, followed by the remainder of the infant. The cord was clamped and cut and the infant handed off to the pediatric staff. The fluid was heavily meconium tinged. Blood for possible cord gas was collected. The placenta was delivered spontaneously. The uterus was then cleaned of all clots and debris, and the incision was reapproximated in a running locked stitch fashion utilizing a 0 Vicryl. A second running stitch imbricating the first layer was performed utilizing another 0 Vicryl. Hemostasis was excellent. The bladder blade and Wu retractors were removed. The peritoneum was closed with a running stitch fashion utilizing a 3-0 Vicryl. The rectus fascia was then reapproximated with a PDS in a running stitch fashion. Subcutaneous tissue was closed with a 3-0 Vicryl in a running stitch fashion. Hemostasis was excellent. The skin was finally closed with a 4-0 Monocryl in a subcuticular fashion. All lap, sponge, needle, and instrument counts were correct per the OR nursing staff x2. The patient was taken to the recovery room in stable condition. Prior to the procedure, the patient had received several doses of amoxicillin and gentamicin for chorioamnionitis. Additionally, she received metronidazole prior to this procedure, and intraoperatively, she had received 2 g of Ancef. BRYSON HART /[id number]
== END 2020-09-29 20:55 | disposition home or self-care (01) | DRG 786 ==
LOC: MW.OBCHECK 14:49 → MW.OB 17:31 → OBSVTOIN 09-25 17:31 → MW.OB 09-26 07:42
PROVIDERS: ADMIT Obstetrics & Gynecology Obstetrics; ATTEND Obstetrics & Gynecology Obstetrics
PROC: 10D00Z1 Extraction of Products of Conception, Low, Open Approach (ICD-10-PCS; principal; 2020-09-25)
DX: O77.0 Labor and delivery complicated by meconium in amniotic fluid (principal); O41.1230 Chorioamnionitis, third trimester, not applicable or unspecified; Z3A.39 39 weeks gestation of pregnancy; Z37.0 Single live birth; O76 Abnormality in fetal heart rate and rhythm complicating labor and delivery; Z20.822 Contact with and (suspected) exposure to COVID-19
CPT/HCPCS: 01967; 01968; 36415; 51702; 84112; 85014; 85018; 85025; 85027; 86592; 86850; 86900; 86901; 88307; A9270-GY; J0290; J0690; J1580; J1885; J2270; J2300; J2370; J2405; J2590; J2704; J2795; J3010; J3490; J7120; U0002